=== PATIENT | male | born 1985 | race Caucasian/White ===

== ENCOUNTER 2021-01-18 23:42 | Emergency (ER) | payer MEDICARE, MEDICAID ==
[~2021-01-18] VITALS: Ht 177.8 cm; Wt 113.6 kg
[2021-01-18] MEDS ORDERED: LEVE10003 (23:52)
[2021-01-18] MEDS ORDERED: DIVA500T9 (23:52)
[2021-01-19 00:30] LABS: BASO # 0.1 10^3/uL (0.0-0.2); BASO % 0.8 % (0.0-1.0); EOS # 0.1 10^3/uL (0.0-0.5); EOS % 1.5 % (0.0-3.0); HEMATOCRIT 39.4 % (42.0-52.0); LYMPH # 2.3 10^3/uL (1.5-5.0); LYMPH % 31.7 % (24.0-44.0); MEAN CORPUSCULAR VOLUME 87.9 fl (80.0-96.0); MONO # 0.6 10^3/uL (0.0-0.8); MONO % 8.5 % (2.0-8.0); NEUTROPHILS % 55.4 % (36.0-66.0); PLATELET COUNT, AUTOMATED 303 10^3/uL (150-450); RED BLOOD COUNT 4.48 10^6/uL (4.30-6.10); WHITE BLOOD COUNT 7.2 10^3/uL (4.0-10.0)
[2021-01-19 01:02] LABS: ALBUMIN 2.9 GM/DL (3.2-5.2); ALT/SGPT 59 U/L (12-78); BILIRUBIN,TOTAL 0.3 MG/DL (0.2-1.0); BLOOD UREA NITROGEN 10 MG/DL (7-18); CALCIUM LEVEL 7.8 MG/DL (8.5-10.1); CARBON DIOXIDE LEVEL 24 MEQ/L (21-32); CHLORIDE LEVEL 110 MEQ/L (98-107); CPK CREATINE PHOSPHOKINASE 246 U/L (39-308); CREATININE FOR GFR 0.82 MG/DL (0.70-1.30); GLOMERULAR FILTRATION RATE > 60.0 (>60); GLUCOSE, FASTING 172 MG/DL (70-100); POTASSIUM SERUM 4.4 MEQ/L (3.5-5.1); SODIUM LEVEL 140 MEQ/L (136-145); TOTAL PROTEIN 6.1 GM/DL (6.4-8.2); VALPROIC ACID (DEPAKOTE) 34.4 UG/ML (50.0-100.0)
[2021-01-19] MEDS ORDERED: VALPROATE SOD INJ 500 MG in D5W 50 ML IV ONE (01:35)
[2021-01-19] MEDS ORDERED: DEPA500T2 PO (02:43)
[2021-01-19] MEDS ORDERED: DIVA500T9 PO (02:45)
[2021-01-19 03:01] VITALS: BP 148/75
== END 2021-01-19 03:27 | disposition home or self-care (01) ==
LOC: M ED 23:42
DX: R56.9 Unspecified convulsions (principal)

== ENCOUNTER 2021-03-05 12:14 | Emergency (ER) | payer MEDICARE, MEDICAID ==
[~2021-03-05] VITALS: Ht 180.3 cm; Wt 114.7 kg
[~2021-03-05 12:14] MED LIST: DEPA500T2 PO; DIVA500T9; DIVA500T9 PO; LEVE10003
--- OUTSIDE RECORDS SUMMARY | 2021-03-05 12:20 | CCD ---
Author Author [facility] Organization [facility] Address Unknown Phone Unavailable Care Team Providers Care Health And Safety Inspector Name Role Phone Janet, F Sundar PA Unavailable Unavailable [place], F Sundar PA Unavailable Unavailable [place], F Sundar PA Unavailable Unavailable [place], F Sundar PA Unavailable Unavailable Janet, F Sundar PA Unavailable Unavailable Janet, F Sundar PA Unavailable Unavailable Janet, F Sundar PA Unavailable Unavailable Janet, F Sundar PA Unavailable Unavailable [place], F Sundar PA Unavailable Unavailable Janet, F Sundar PA Unavailable Unavailable Hadian, Leoncio Unavailable Unavailable Hadian, Leoncio Unavailable Unavailable Hadian, Leoncio Unavailable Unavailable Hadian, Leoncio Unavailable Unavailable Hadian, Leoncio Unavailable Unavailable Hadian, Leoncio Unavailable Unavailable Hadian, Leoncio Unavailable Unavailable Hadian, Leoncio Unavailable Unavailable Hadian, Leoncio Unavailable Unavailable Hadian, Leoncio Unavailable Unavailable Hadian, Leoncio Unavailable Unavailable Hadian, Leoncio Unavailable Unavailable Hadian, Leoncio Unavailable Unavailable Hadian, Leoncio Unavailable Unavailable Hadian, Leoncio Unavailable Unavailable Hadian, Leoncio Unavailable Unavailable Hadian, Leoncio Unavailable Unavailable Hadian, Leoncio Unavailable Unavailable Hadian, Leoncio Unavailable Unavailable Hadian, Leoncio Unavailable Unavailable Hadian, Leoncio Unavailable Unavailable Hadian, Leoncio Unavailable Unavailable Hadian, Leoncio Unavailable Unavailable Hadian, Leoncio Unavailable Unavailable Hadian, Leoncio Unavailable Unavailable Hadian, Leoncio Unavailable Unavailable Hadian, Leoncio Unavailable Unavailable Hadian, Leoncio Unavailable Unavailable Hadian, Leoncio Unavailable Unavailable Hadian, Leoncio Unavailable Unavailable Hadian, Leoncio Unavailable Unavailable Hadian, Leoncio Unavailable Unavailable Hadian, Leoncio Unavailable Unavailable Hadian, Leoncio Unavailable Unavailable Hadian, Leoncio Unavailable Unavailable Hadian, Leoncio Unavailable Unavailable Hadian, Leoncio Unavailable Unavailable Hadian, Leoncio Unavailable Unavailable Hadian, Leoncio Unavailable Unavailable Hadian, Leoncio Unavailable Unavailable Hadian, Leoncio Unavailable Unavailable Hadian, Leoncio Unavailable Unavailable Cougler, S Issac HABILITATIVE INTERVENTIONIST Unavailable Unavailable Cougler, S Issac HABILITATIVE INTERVENTIONIST Unavailable Unavailable Cougler, S Issac HABILITATIVE INTERVENTIONIST Unavailable Unavailable Cougler, S Issac HABILITATIVE INTERVENTIONIST Unavailable Unavailable Cougler, S Issac HABILITATIVE INTERVENTIONIST Unavailable Unavailable Cougler, S Issac HABILITATIVE INTERVENTIONIST Unavailable Unavailable Cougler, S Issac HABILITATIVE INTERVENTIONIST Unavailable Unavailable Cougler, S Issac HABILITATIVE INTERVENTIONIST Unavailable Unavailable Cougler, S Issac HABILITATIVE INTERVENTIONIST Unavailable Unavailable Cougler, S Issac HABILITATIVE INTERVENTIONIST Unavailable Unavailable Cougler, S Issac HABILITATIVE INTERVENTIONIST Unavailable Unavailable Cougler, S Issac HABILITATIVE INTERVENTIONIST Unavailable Unavailable Cougler, S Issac HABILITATIVE INTERVENTIONIST Unavailable Unavailable Cougler, S Issac HABILITATIVE INTERVENTIONIST Unavailable Unavailable Cougler, S Issac HABILITATIVE INTERVENTIONIST Unavailable Unavailable Cougler, S Issac HABILITATIVE INTERVENTIONIST Unavailable Unavailable Cougler, S Issac HABILITATIVE INTERVENTIONIST Unavailable Unavailable Cougler, S Issac HABILITATIVE INTERVENTIONIST Unavailable Unavailable Cougler, S Issac HABILITATIVE INTERVENTIONIST Unavailable Unavailable Cougler, S Issac HABILITATIVE INTERVENTIONIST Unavailable Unavailable Cougler, S Issac HABILITATIVE INTERVENTIONIST Unavailable Unavailable Cougler, S Issac HABILITATIVE INTERVENTIONIST Unavailable Unavailable Cougler, S Issac HABILITATIVE INTERVENTIONIST Unavailable Unavailable Cougler, S Issac HABILITATIVE INTERVENTIONIST Unavailable Unavailable Cougler, S Issac HABILITATIVE INTERVENTIONIST Unavailable Unavailable Cougler, S Issac HABILITATIVE INTERVENTIONIST Unavailable Unavailable Cougler, S Issac HABILITATIVE INTERVENTIONIST Unavailable Unavailable Cougler, S Issac HABILITATIVE INTERVENTIONIST Unavailable Unavailable Cougler, S Issac HABILITATIVE INTERVENTIONIST Unavailable Unavailable Cougler, S Issac HABILITATIVE INTERVENTIONIST Unavailable Unavailable Cougler, S Issac HABILITATIVE INTERVENTIONIST Unavailable Unavailable Cougler, S Issac HABILITATIVE INTERVENTIONIST Unavailable Unavailable Cougler, S Issac HABILITATIVE INTERVENTIONIST Unavailable Unavailable Cougler, S Issac HABILITATIVE INTERVENTIONIST Unavailable Unavailable Cougler, S Issac HABILITATIVE INTERVENTIONIST Unavailable Unavailable Cougler, S Issac HABILITATIVE INTERVENTIONIST Unavailable Unavailable Cougler, S Issac HABILITATIVE INTERVENTIONIST Unavailable Unavailable Cougler, S Issac HABILITATIVE INTERVENTIONIST Unavailable Unavailable Cougler, S Issac HABILITATIVE INTERVENTIONIST Unavailable Unavailable Cougler, S Isasc HABILITATIVE INTERVENTIONIST Unavailable Unavailable Cougler, S Issac HABILITATIVE INTERVENTIONIST Unavailable Unavailable Cougler, S Issac HABILITATIVE INTERVENTIONIST Unavailable Unavailable Cougler, S Issac HABILITATIVE INTERVENTIONIST Unavailable Unavailable Cougler, S Issac HABILITATIVE INTERVENTIONIST Unavailable Unavailable UNKNOWN Unavailable Unavailable Re-disclosure Warning The records that you are about to access may contain information from federally-assisted alcohol or drug abuse programs. If such information is present, then the following federally mandated warning applies: This information has been disclosed to you from records protected by federal confidentiality rules (42 CFR part 2). The federal rules prohibit you from making any further disclosure of this information unless further disclosure is expressly permitted by the written consent of the person to whom it pertains or as otherwise permitted by 42 CFR part 2. A general authorization for the release of medical or other information is NOT sufficient for this purpose. The Federal rules restrict any use of the information to criminally investigate or prosecute any alcohol or drug abuse patient.The records that you are about to access may contain highly sensitive health information, the redisclosure of which is protected by Article 27-F of the [facility] Public Health law. If you continue you may have access to information: Regarding HIV / AIDS; Provided by facilities licensed or operated by the [facility] Office of Mental Health; or Provided by the [facility] Office for People With Developmental Disabilities. If such information is present, then the following [facility] mandated warning applies: This information has been disclosed to you from confidential records which are protected by state law. State law prohibits you from making any further disclosure of this information without the specific written consent of the person to whom it pertains, or as otherwise permitted by law. Any unauthorized further disclosure in violation of state law may result in a fine or prison sentence or both. A general authorization for the release of medical or other information is NOT sufficient authorization for further disc losure. Allergies and Adverse Reactions Type Description Substance Reaction Status Data Source(s ) Drug allergy Drug allergy No Known Allergies [facility] Encounters Encounter Providers Location Date Indications Data Source(s ) Outpatient Attender: UNKNOWN [facility]EJN 09/05/2020 02:59:00 PM E [facility] Outpatient Attender: Issac Lara NP ED-LAB 09/05 02:16:00 PM EDT - 09/05/2020 02:17:00 PM EDT E559 [id number] [facility] E559 [id number] Patient discharged. Outpatient Attender: Issac Lara NP ED-SLEEPLAB 05/24 07:47:00 PM EST - 05/24/2020 07:48:00 PM EST G47.33 [facility] G47.33 Patient discharged. Outpatient [facility]LABEJ[facility] 04/28/2020 02:42:00 PM EST [facility] Outpatient Attender: Leoncio Valentine ED-LABPNP 0 10:08:00 AM EST - 04/28/2020 10:09:00 AM EST RETURN TO [facility] RETURN TO [facility] Patient discharged. Outpatient Attender: Issac Lara NP ED-SLEEPLAB 04/18 07:03:00 PM EST - 04/18/2020 07:04:00 PM EST G47.30 [facility] G47.30 Patient discharged. Outpatient [facility]LABEJ[facility] 03/07/2020 09:52:00 AM EDT [facility] Emergency Attender: Sundar DE LEÓN ED-ED 10:16:00 PM EDT - 03/07/2020 12:01:00 AM EDT [facility] Seizure Patient discharged. Immunizations Vaccine Date Status Description Data Source(s) COVID-19 VACCINE [employer] 11/12/2020 12:00:00 AM EDT completed [facility] Vaccine Series Complete: YESThis Data wa s Submitted to [facility] Via [employer]. COVID-19 VACCINE [employer] 10/22/2020 12:00:00 AM EDT completed [facility] Vaccine Series Complete: NOThis Data was Submitted to [facility] Via [employer]. Medications Medication Brand Name Start Date Product Form Dose Route Admi nistrative Instructions Pharmacy Instructions Status Indications Reaction Description Data Source(s) 24 HR Divalproex Sodium 500 MG Extended Release Oral Tablet DIVALPROEX SODIUM 09/06/2020 12:00:00 AM EDT tablet extended release 24 hr 180 TAKE TWO TABLETS BY MOUTH TWICE A DAY TAKE TWO TABLETS BY MOUTH TWICE A DAY SOLD: 09/06/2020 [facility] 1,000 mg 09/06/2020 12:00:00 AM EDT tablet 270 TAKE ONE AND ONE-HALF TABLETS BY MOUTH EVERY 12 HOURS TAKE ONE AND ONE-HALF TABLETS BY MOUTH EVERY 12 HOURS SOLD: 09/06/2020 [facility] 1,000 mg 08/08/2020 12:00:00 AM EDT tablet 90 TAKE ONE AND A HALF TABLETS BY MOUTH EVERY 12 HOURS TAKE ONE AND A HALF TABLETS BY MOUTH EVERY 12 HOURS SO LD: 08/09/2020 [facility] 24 HR Divalproex Sodium 500 MG Extended Release Oral Tablet DIVALPROEX SODIUM 04/06/2020 12:00:00 AM EST tablet extended release 24 hr 180 TAKE TWO TABLETS BY MOUTH TWICE A DAY TAKE TWO TABLETS BY MOUTH TWICE A DAY SOLD: 04/06/2020 [facility] 24 HR Divalproex Sodium 500 MG Extended Release Oral Tablet DIVALPROEX SODIUM 04/06/2020 12:00:00 AM EST tablet extended release 24 hr 168 TAKE TWO TABLETS BY MOUTH TWICE A DAY TAKE TWO TABLETS BY MOUTH TWICE A DAY SOLD: 07/12/2020 [facility] 1,000 mg 04/05/2020 12:00:00 AM EST tablet 180 TAKE 1 & 1/2 TABLETS BY MOUTH EVERY 12 HOURS TAKE 1 & 1/2 TABLETS BY MOUTH EVERY 12 HOURS SOLD: 04/06/2020 [facility] 1,000 mg 04/05/2020 12:00:00 AM EST tablet 180 TAKE 1 & 1/2 TABLETS BY MOUTH EVERY 12 HOURS TAKE 1 & 1/2 TABLETS BY MOUTH EVERY 12 HOURS SOLD: 06/05/2020 [facility] 500 mg 02/07/2020 12:00:00 AM EDT tablet extended release 24 hr 120 TAKE TWO TABLETS BY MOUTH TWICE A DAY TAKE TWO TABLETS BY MOUTH TWICE A DAY SOLD: 02/08/2020 [facility] 1,000 mg 10/09/2019 12:00:00 AM EDT tablet 90 TAKE ONE AND ONE-HALF TABLET BY MOUTH EVERY 12 HOURS TAKE ONE AND ONE-HALF TABLET BY MOUTH EVERY 12 HOURS SOLD: 01/13/2020 [facility] 1,000 mg 10/09/2019 12:00:00 AM EDT tablet 90 TAKE ONE AND ONE-HALF TABLET BY MOUTH EVERY 12 HOURS TAKE ONE AND ONE-HALF TABLET BY MOUTH EVERY 12 HOURS SOLD: 02/13/2020 [facility] 1,000 mg 10/09/2019 12:00:00 AM EDT tablet 90 TAKE ONE AND ONE-HALF TABLET BY MOUTH EVERY 12 HOURS TAKE ONE AND ONE-HALF TABLET BY MOUTH EVERY 12 HOURS SOLD: 03/12/2020 [facility] Insurance Providers Payer name Policy type / Coverage type Policy ID Covered democrat ID Covered democrat's relationship to lawrence Policy [place] Plan Information MEDICARE [id number] S [id number] A [facility] MEDICAID [id number] SP [id number] MEDICARE [id number] SP [id number] [facility] MEDICAID [id number] SP [id number] MEDICARE [id number] SP [id number] MEDICAID [id number] S [id number] MEDICARE [id number] S [id number] MEDICARE [id number] S [id number] ANSI-Medicare Part B [id number] ANSI-Medicaid [id number] [facility] [id number] ANSI-Medicare Part B [id number] [facility] [id number] [facility] [id number] [facility] [id number] ANSI-Medicare Part B [id number] ANSI-Medicare Part B [id number] ANSI-Medicaid [id number] ANSI-Medicare Part B [id number] ANSI-Medicaid [id number] MEDICAID [id number] S [id number] MEDICAID [id number] S [id number] MEDICAID -O/P [id number] MEDICARE -O/P [id number] 18 [id number] MEDICAID -PHYSICIAN [id number] MEDICARE -PHYSICIAN [id number] MEDICARE [id number] Problems, Conditions, and Diagnoses Code Display Name Description Problem Type Effective Dates Data Source(s) E66.9 Obesity, unspecified OBESITY, UNSPECIFIED Diagnosis 09/05/2020 02:16:00 PM [facility] E55.9 Vitamin D deficiency, unspecified VITAMIN D DEFI CIENCY, UNSPECIFIED Diagnosis 09/05/2020 02:16:00 PM [facility] G40.909 Epilepsy, unspecified, not intractable, without status epilepticus EPILEPSY, UNSP, NOT INTRACTABLE, WITHOUT STATUS EPILEPTICUS Diagnosis 05/24/2020 07:47:00 PM [facility] Z68.37 Body mass index (BMI) 37.0-37.9, adult [place] INDEX [BMI] 37.0-37.9, ADULT Diagnosis 05/24/2020 07:47:00 PM [facility]ital E66.01 Morbid (severe) obesity due to excess ca lories MORBID (SEVERE) OBESITY DUE TO EXCESS CALORIES Diagnosis 05/24/2020 07:47:00 PM [facility] G47.33 Obstructive sleep apnea (adult) (pediatr ic) OBSTRUCTIVE SLEEP APNEA (ADULT) (PEDIATRIC) Diagnosis 05/24/2020 07:47:[facility] Procedure Description Date Indications Data Source(s) POLYSM SLEEP STAGING 4/> ADDL TONIA W/CPAP TX POLYSOM 6/>YRS CPAP 4/> PARM 05/25/2020 12:00:00 AM [facility] Results ID Date Data Source [id number] 09/07/2020 05:12:00 PM EDT [facility] Name Value Range Interpretation Code Description Data Deanne rce(s) Supporting Document(s) Levetiracetam result Normal (applies to non-num corona results) [facility] REFERENCE VALUE------ 10.0 - 40.0 ADDITIONAL INFORMATION This test was developed and its performance characteristics determined by [facility] in a manner consistent with CLIA requirements. This test has not been cleared or approved by the U.S. Food and Drug Administration. Test Performed by: [facility] - [address] [address] Retirement Benefits Specialist: Bryan Morgan M.D. Ph.D.; CLIA# [id number] ID Date Data Source [id number] 09/07/2020 04:12:00 PM EDT [facility] Name Value Range Interpretation Code Description Data Deanne rce(s) Supporting Document(s) Levetiracetam result Normal (applies to non-num corona results) [facility] REFERENCE VALUE------ 10.0 - 40.0 ADDITIONAL INFORMATION This test was developed and its performance characteristics determined by [facility] in a manner consistent with CLIA requirements. This test has not been cleared or approved by the U.S. Food and Drug Administration. Test Performed by: [facility] [place] [address] Retirement Benefits Specialist: Bryan Morgan M.D. Ph.D.; CLIA# [id number] ID Date Data Source [id number] 09/05/2020 03:50:00 PM EDT [facility] Name Value Range Interpretation Code Description Data Deanne rce(s) Supporting Document(s) Color,Urine Colorl-Dk Y Normal (applies to non-numeric res ults) [facility] Clarity,Urine Clear Normal (applies to non-numeric re sults) [facility] Specific [place],Urine 1.005-1.030 Normal (applies to non- numeric results) [facility] pH,Urine 5.0-8.0 Normal (applies to non-numeric resul ts) [facility] Protein,Urine Negative Normal (applies to non-numeric re sults) [facility] Glucose,Urine Negative Normal (applies to non-numeric re sults) [facility] Ketones,Urine Negative Normal (applies to non-numeric re sults) [facility] Blood,Urine Negative Normal (applies to non-numeric resu lts) [facility] Bilirubin,Urine Negative Normal (applies to non-numeric results) [facility] Urobilinogen,Urine 0.2-1.0 Normal (applies to non-numer ic results) [facility] Leukocyte Esterase,Urine Negative Normal (applies to non -numeric results) [facility] Nitrite,Urine Negative Normal (applies to non-numeric re sults) [facility] RBC,Urine None Seen Normal (applies to non-numeric resul ts) [facility] WBC,Urine None Seen Normal (applies to non-numeric resul ts) [facility] Casts,Urine None Seen Normal (applies to non-numeric resu lts) [facility] Epithelial Cells,Urine None - Few Normal (applies to non-n umeric results) [facility] Bacteria,Urine None Seen Normal (applies to non-numeric r esults) [facility] ID Date Data Source [id number] 09/05/2020 03:37:00 PM EDT [facility] Name Value Range Interpretation Code Description Data Deanne rce(s) Supporting Document(s) Vitamin D, Total 30.0-100.0 Normal (applies to non-numeric results) [facility] ID Date Data Source [id number] 09/05/2020 03:33:00 PM EDT [facility] Date/time of last Valproic dose? 9046-5607 Date/time of last Valproic dose? 1069-6478 Date/time of last Valproic dose? 9668-5322 Date/time of last Valproic dose? 9307-7969 Date/time of last Valproic dose? 8604-9842 Date/time of last Valproic dose? 1775-8866 Name Value Range Interpretation Code Description Data Deanne rce(s) Supporting Document(s) Sodium 140 mmol/L 136-145 Normal (applies to non-numeric resul ts) [facility] Potassium 3.5-5.1 Normal (applies to non-numeric resul ts) [facility] Chloride 102 mmol/L 98-107 Normal (applies to non-numeric resul ts) [facility] Carbon Dioxide CO2 21-32 Normal (applies to non-numer ic results) [facility] Anion Gap 5.0-16.0 Normal (applies to non-numeric resul ts) [facility] BUN 12 mg/dL 7-18 Normal (applies to non-numeric results) [facility] Creatinine,Serum 0.8-1.5 Normal (applies to non-numeric results) [facility] GFR >60 Normal (applies to non-numeric results) [facility] Glucose Level 95 mg/dL 60-99 Normal (applies to non-numeric re sults) [facility] Reference range is only applicable when patient is fasting Note the following drug interference: Sulfasalazine Sulfapyridine Can see falsely depressed Can see falsely elevated result with up to 17% results with up to 11% decrease in measurement increase in measurement Recommend patients be collected for this test prior to administration of either drug. Calcium 8.5-10.1 Normal (applies to non-numeric resul ts) [facility] Bilirubin,Total 0.1-1.9 Normal (applies to non-numeric results) [facility] SGOT(AST) 22 U/L 15-37 Normal (applies to non-numeric resul ts) [facility] Note the following drug interference: Sulfasalazine Sulfapyridine Can see falsely depressed Can see falsely elevated result with up to 10% results with up to 10% decrease in measurement increase in measurement Recommend patients be collected for this test prior to administration of either drug. SGPT(ALT) 51 U/L 12-78 Normal (applies to non-numeric resul ts) [facility] Note the following drug interference: Sulfasalazine Sulfapyridine Can see falsely depressed Can see falsely elevated result with up to 29% results with up to 10% decrease in measurement increase in measurement Recommend patients be collected for this test prior to administration of either drug. Alkaline Phosphatase 105 U/L 38-126 Normal (applies to non-num corona results) [facility] can increase Alkaline Phosp le vels up to 2 times the normal adult value. Normal values for children and adolescents are 2 to 3 times the normal adult value. Total Protein 6.0-8.2 Normal (applies to non-numeric re sults) [facility] Albumin Level 3.4-5.0 Normal (applies to non-numeric re sults) [facility] ID Date Data Source [id number] 09/05/2020 03:33:00 PM EDT [facility] Date/time of last Valproic dose? 2228-3438 Date/time of last Valproic dose? 3446-2229 Date/time of last Valproic dose? 2666-9372 Date/time of last Valproic dose? 0549-6071 Date/time of last Valproic dose? 8421-0495 Date/time of last Valproic dose? 6625-8284 Name Value Range Interpretation Code Description Data Deanne rce(s) Supporting Document(s) Phosphorus 2.5-4.9 Normal (applies to non-numeric resul ts) [facility] ID Date Data Source [id number] 09/05/2020 03:33:00 PM EDT [facility] Date/time of last Valproic dose? 0729-2965 Date/time of last Valproic dose? 2788-7075 Date/time of last Valproic dose? 0786-1331 Date/time of last Valproic dose? 7196-2873 Date/time of last Valproic dose? 1244-1825 Date/time of last Valproic dose? 6946-2751 Name Value Range Interpretation Code Description Data Deanne rce(s) Supporting Document(s) Magnesium 1.8-2.4 Normal (applies to non-numeric resul ts) [facility] ID Date Data Source [id number] 09/05/2020 03:33:00 PM EDT [facility] Date/time of last Valproic dose? 7352-8072 Date/time of last Valproic dose? 9029-4550 Date/time of last Valproic dose? 9215-7682 Date/time of last Valproic dose? 7791-9366 Date/time of last Valproic dose? 0317-3798 Date/time of last Valproic dose? 8482-5064 Name Value Range Interpretation Code Description Data Deanne rce(s) Supporting Document(s) Triglycerides 267 mg/dL <150 Above high normal [facility] Cholesterol 257 mg/dL 100-200 Above high normal [facility] LDL Cholesterol Calculated 165 0-130 Above high normal [facility] HDL Cholesterol 39 mg/dL 40-60 Below low normal [facility] Cholesterol/HDL Ratio 3.6-6.7 Normal (applies to non-nu meric results) [facility] ID Date Data Source [id number] 09/05/2020 03:33:00 PM EDT [facility] Date/time of last Valproic dose? 5488-7725 Date/time of last Valproic dose? 8477-6163 Date/time of last Valproic dose? 2769-8199 Date/time of last Valproic dose? 6150-7532 Date/time of last Valproic dose? 1932-7227 Date/time of last Valproic dose? 7165-6937 Name Value Range Interpretation Code Description Data Deanne rce(s) Supporting Document(s) Depakene (Valproic Acid) 50.0-100.0 Normal (applies to non -numeric results) [facility] ID Date Data Source [id number] 09/05/2020 03:33:00 PM EDT [facility] Date/time of last Valproic dose? 9193-9336 Date/time of last Valproic dose? 3142-9497 Date/time of last Valproic dose? 3259-7524 Date/time of last Valproic dose? 0023-7145 Date/time of last Valproic dose? 5203-9069 Date/time of last Valproic dose? 1446-1328 Name Value Range Interpretation Code Description Data Deanne rce(s) Supporting Document(s) Thyroid Stimulate Hormone TSH 0.358-3.74 No rmal (applies to non-numeric results) [facility] ID Date Data Source [id number] 09/05/2020 03:06:00 PM EDT [facility] Name Value Range Interpretation Code Description Data Deanne rce(s) Supporting Document(s) White Blood Count 3.5-10.5 Normal (applies to non-numeri c results) [facility] Red Blood Count 4.30-5.70 Normal (applies to non-numeric results) [facility] Hemoglobin 13.5-17.5 Normal (applies to non-numeric resul ts) [facility] Hematocrit 38.8-50.0 Normal (applies to non-numeric resul ts) [facility] Mean Corpuscular Volume 81.2-95.1 Normal (applies to non- numeric results) [facility] Mean Corpuscular Hgb 25.6-32.2 Normal (applies to non-num corona results) [facility] Mean Corpuscular Hgb Conc 32.0-36.0 Normal (applies to no n-numeric results) [facility] Red Cell Distribution Width 11.8-15.6 Normal (appli es to non-numeric results) [facility] Platelet Count 325 x10 3/uL 150-450 Normal (applies to non-numeric results) [facility] Mean Platelet Volume 9.4-12.4 Normal (applies to non-num corona results) [facility] Neutrophils% (Auto) 31.0-71.0 Normal (applies to non-nume milo results) [facility] Lymphocytes% (Auto) 20.0-55.0 Normal (applies to non-nume milo results) [facility] Monocytes% (Auto) 4.0-12.0 Normal (applies to non-numeri c results) [facility] Eosinophils% (Auto) 1.0-8.0 Normal (applies to non-nume milo results) [facility] Basophils% (Auto) 0.0-2.0 Normal (applies to non-numeri c results) [facility] Immature Granulocytes% (Auto) 0.0-2.0 Normal (huong lies to non-numeric results) [facility] Neutrophils# (Auto) 1.50-6.20 Normal (applies to non-nume milo results) [facility] Lymphocytes# (Auto) 1.20-4.00 Normal (applies to non-nume milo results) [facility] Monocytes# (Auto) 0.00-0.90 Normal (applies to non-numeri c results) [facility] Eosinophils# (Auto) 0.00-0.50 Normal (applies to non-nume milo results) [facility] Basophils# (Auto) 0.00-0.20 Normal (applies to non-numeri c results) [facility] Immature Granulocytes# (Auto) 0.00-7.00 No rmal (applies to non-numeric results) [facility] ID Date Data Source [id number] 04/30/2020 03:15:00 PM EST [facility] Name Value Range Interpretation Code Description Data Deanne rce(s) Supporting Document(s) Respiratory specimen severe acute respir atory syndrome coronavirus 2 (SARS-CoV-2) RNA [facility] This lab was ordered by [facility] cami and reported by [facility]. ID Date Data Source [id number] 05/01/2020 01:50:00 PM [facility] COVID-19 Specimen Source NASOPHARYNGEAL Is Patient admitted or to be admitted? NFirst test? NOEmployed in healthcare? NOSymptomatic per CDC? NOHospitalized? NOICU? NOResident in congregated care? ex jail, ARC NO? NO Name Value Range Interpretation Code Description Data Deanne rce(s) Supporting Document(s) SARS-CoV-2 RNA Negative Normal (applies to non-numeric r esults) [facility] This test has not been FDA cleared or ap proved. This test has been authorized by FDA under an EUA for use by authorized laboratories. This test has been authorized only for detection of nucleic acid from 2019-nCoV, not for any other viruses or pathogens. This test is only authorized for the duration of the declaration that circumstances exist justifying the authorization of emergency use of in vitro diagnostic tests for detection and/or diagnosis of 2019-nCoV under section 564(b)(1) of Act, 21 U.S.C ? 360bbb-3(b) (1), unless the authorization is terminated or revoked sooner. Negative results do not preclude 2019-nCoV infection and should not be used as the sole basis for treatment or other patient management decisions. Negative results must be combined with clinical observations, patient history, and epidemiological information. Performed on the [employer] Fusion instrument THIS IS A STATE REPORTABLE COMMUNICABLE DISEASE. Performing Lab Normal (applies to non-numeric r esults) [facility] COVID-19 Specimen Source: HABILITATIVE INTERVENTIONIST First test ?: N Employed in healthcare?: N Symptomatic per CDC?: N Hospitalized?: N ICU?: N Resident in congregated care? ex jail, ARC: N ?: N Please indicate the Triage TierN Test performed or referred by The [address] [address] ID Date Data Source [id number] 04/30/2020 03:24:00 PM EST [facility] COVID-19 Specimen Source NASOPHARYNGEAL Is Patient admitted or to be admitted? NFirst test? NOEmployed in healthcare? NOSymptomatic per [facility]? NOHospitalized? NOICU? NOResident in congregated care? ex jail, [place]C NO? NO Name Value Range Interpretation Code Description Data Deanne rce(s) Supporting Document(s) SARS-CoV-2 RNA Negative Normal (applies to non-numeric r esults) [facility] This test has not been FDA cleared or ap proved. This test has been authorized by FDA under an EUA for use by authorized laboratories. This test has been authorized only for detection of nucleic acid from 2019-nCoV, not for any other viruses or pathogens. This test is only authorized for the duration of the declaration that circumstances exist justifying the authorization of emergency use of in vitro diagnostic tests for detection and/or diagnosis of 2019-nCoV under section 564(b)(1) of Act, 21 U.S.C ? 360bbb-3(b) (1), unless the authorization is terminated or revoked sooner. Negative results do not preclude 2019-nCoV infection and should not be used as the sole basis for treatment or other patient management decisions. Negative results must be combined with clinical observations, patient history, and epidemiological information. Performed on the [employer] Fusion instrument THIS IS A STATE REPORTABLE COMMUNICABLE DISEASE. Performing Lab Normal (applies to non-numeric r esults) [facility] COVID-19 Specimen Source: HABILITATIVE INTERVENTIONIST First test ?: N Employed in healthcare?: N Symptomatic per CDC?: N Hospitalized?: N ICU?: N Resident in congregated care? ex jail, [place]C: N ?: N Please indicate the Triage TierN Test performed or referred by The [address] [address] ID Date Data Source [id number] 03/11/2020 01:47:00 AM EDT [facility] Name Value Range Interpretation Code Description Data Deanne rce(s) Supporting Document(s) Levetiracetam result Normal (applies to non-num corona results) [facility] REFERENCE VALUE------ 12.0 - 46.0 ADDITIONAL INFORMATION This test was developed and its performance characteristics determined by [facility] in a manner consistent with CLIA requirements. This test has not been cleared or approved by the U.S. Food and Drug Administration. Test Performed by: [facility] [place] [address] Retirement Benefits Specialist: Bryan Morgan M.D. Ph.D.; CLIA# [id number] ID Date Data Source [id number] 03/10/2020 09:51:00 PM EDT [facility] Name Value Range Interpretation Code Description Data Deanne rce(s) Supporting Document(s) Levetiracetam result Normal (applies to non-num corona results) [facility] REFERENCE VALUE------ 12.0 - 46.0 ADDITIONAL INFORMATION This test was developed and its performance characteristics determined by [facility] in a manner consistent with CLIA requirements. This test has not been cleared or approved by the U.S. Food and Drug Administration. Test Performed by: [facility] [address] [place] [address] Retirement Benefits Specialist: Bryan Morgan M.D. Ph.D.; CLIA# [id number] ID Date Data Source [id number] 03/06/2020 11:40:00 PM EDT [facility] Name Value Range Interpretation Code Description Data Deanne rce(s) Supporting Document(s) White Blood Count 3.5-10.5 Normal (applies to non-numeri c results) [facility] Red Blood Count 4.30-5.70 Normal (applies to non-numeric results) [facility] Hemoglobin 13.5-17.5 Normal (applies to non-numeric resul ts) [facility] Hematocrit 38.8-50.0 Normal (applies to non-numeric resul ts) [facility] Mean Corpuscular Volume 81.2-95.1 Normal (applies to non- numeric results) [facility] Mean Corpuscular Hgb 25.6-32.2 Normal (applies to non-num corona results) [facility] Mean Corpuscular Hgb Conc 32.0-36.0 Normal (applies to no n-numeric results) [facility] Red Cell Distribution Width 11.8-15.6 Normal (appli es to non-numeric results) [facility] Platelet Count 311 x10 3/uL 150-450 Normal (applies to non-numeric results) [facility] Mean Platelet Volume 9.4-12.4 Normal (applies to non-num corona results) [facility] Total Cells Counted (Manual) 100 Normal (applies to non-numeric results) [facility] Neutrophils% (Manual) 52 % 31-71 Normal (applies to non-nu meric results) [facility] Lymphocytes% (Manual) 37 % 20-55 Normal (applies to non-nu meric results) [facility] Monocytes% (Manual) 10 % 4-12 Normal (applies to non-nume milo results) [facility] Basophils% (Manual) 1 % 0-2 Normal (applies to non-nume milo results) [facility] Platelet Estimate (Manual) Agreement Normal (applie s to non-numeric results) [facility] Slide Reviewed By Normal (applies to non-numeri c results) [facility] Slide has been reviewed and findings con firmed by a technologist/industrial safety and health technician. ID Date Data Source [id number] 03/06/2020 11:32:00 PM EDT [facility] Name Value Range Interpretation Code Description Data Deanne rce(s) Supporting Document(s) Depakene (Valproic Acid) 50.0-100.0 PL [facility] KARIN L. read back critical information [id number].[email or web address] ID Date Data Source [id number] 03/06/2020 11:32:00 PM EDT [facility] Name Value Range Interpretation Code Description Data Deanne rce(s) Supporting Document(s) Sodium 140 mmol/L 136-145 Normal (applies to non-numeric resul ts) [facility] Potassium 3.5-5.1 Normal (applies to non-numeric resul ts) [facility] Chloride 103 mmol/L 98-107 Normal (applies to non-numeric resul ts) [facility] Carbon Dioxide CO2 21-32 Normal (applies to non-numer ic results) [facility] Anion Gap 5.0-16.0 Normal (applies to non-numeric resul ts) [facility] BUN 12 mg/dL 7-18 Normal (applies to non-numeric results) [facility] Creatinine,Serum 0.8-1.5 Normal (applies to non-numeric results) [facility] GFR >60 Normal (applies to non-numeric results) [facility] Glucose Level 182 mg/dL 60-99 Above high normal [facility] Reference range is only applicable when patient is fasting Note the following drug interference: Sulfasalazine Sulfapyridine Can see falsely depressed Can see falsely elevated result with up to 17% results with up to 11% decrease in measurement increase in measurement Recommend patients be collected for this test prior to administration of either drug. Calcium 8.5-10.1 Normal (applies to non-numeric resul ts) [facility] Bilirubin,Total 0.1-1.9 Normal (applies to non-numeric results) [facility] SGOT(AST) 32 U/L 15-37 Normal (applies to non-numeric resul ts) [facility] Note the following drug interference: Sulfasalazine Sulfapyridine Can see falsely depressed Can see falsely elevated result with up to 10% results with up to 10% decrease in measurement increase in measurement Recommend patients be collected for this test prior to administration of either drug. SGPT(ALT) 71 U/L 12-78 Normal (applies to non-numeric resul ts) [facility] Note the following drug interference: Sulfasalazine Sulfapyridine Can see falsely depressed Can see falsely elevated result with up to 29% results with up to 10% decrease in measurement increase in measurement Recommend patients be collected for this test prior to administration of either drug. Alkaline Phosphatase 97 U/L 38-126 Normal (applies to non-num corona results) [facility] can increase Alkaline Phosp le vels up to 2 times the normal adult value. Normal values for children and adolescents are 2 to 3 times the normal adult value. Total Protein 6.0-8.2 Normal (applies to non-numeric re sults) [facility] Albumin Level 3.4-5.0 Normal (applies to non-numeric re sults) [facility] Procedure Social History No Information Vital Signs ID Date Data Source [id number] 03/11/2020 01:47:00 AM EDT [facility] Name Value Range Interpretation Code Description Data Source(s) Weight Measurement Method 8 8 [facility] Weight 3200 3200 [facility] pital Temperature Source 7 7 [facility] Temperature 99 99 [facility] Respiratory Effort 1 1 [facility] Respiratory Rate 14 14 [facility] Pulse Assessment Method 4 4 [facility] Pulse Rate 117 117 [facility] pital Blood Pressure 133/88 133/88 [facility] Weight Measurement Method 8 8 [facility] Weight 3200 3200 [facility] pital Temperature Source 7 7 [facility] Temperature [address] [facility] [facility] Respiratory Effort 1 1 [facility] Respiratory Rate 20 20 [facility] Pulse Assessment Method 4 4 [facility] Pulse Rate 125 125 [facility] pital Blood Pressure 137/93 137/93 [facility] Weight Measurement Method 8 8 [facility] Weight 3200 3200 [facility] pital Temperature Source 7 7 [facility] Temperature [address] [facility] Respiratory Effort 1 1 [facility] Respiratory Rate 20 20 [facility] Pulse Assessment Method 4 4 [facility] Pulse Rate 120 120 [facility] pital Blood Pressure 126/93 126/93 [facility] Weight Measurement Method 8 8 [facility] Weight 3200 3200 [facility] pital Temperature Source 7 7 [facility] Temperature 99 99 [facility] Respiratory Effort 1 1 [facility] Respiratory Rate 20 20 [facility] Pulse Assessment Method 4 4 [facility] Pulse Rate 120 120 [facility] pital Blood Pressure 126/93 126/93 [facility]
[2021-03-05] MEDS ORDERED: DIVA500T94 PO (12:42)
[2021-03-05] MEDS ORDERED: LEVE10003 PO (17:11)
--- OUTSIDE RECORDS SUMMARY | 2021-03-05 17:22 | CCD ---
Author Author [facility] Organization [facility] Address Unknown Phone Unavailable Care Team Providers Care Framing And Hanging Name Role Phone Janet, F Sundar PA Unavailable Unavailable Janet, F Sundar PA Unavailable Unavailable Janet, F Sundar PA Unavailable Unavailable Janet, F Sundar PA Unavailable Unavailable [place], F Sundar PA Unavailable Unavailable [place], F Sundar PA Unavailable Unavailable Janet, F Sundar PA Unavailable Unavailable [place], F Sundar PA Unavailable Unavailable [place], F Sundar PA Unavailable Unavailable Janet, F Sundar PA Unavailable Unavailable Hadian, Leoncio Unavailable Unavailable Hadian, Leoncio Unavailable Unavailable Hadian, Leoncio Unavailable Unavailable Hadian, Leoncio Unavailable Unavailable Hadian, Leoncio Unavailable Unavailable Hadian, Leoncio Unavailable Unavailable Hadian, Leoncio Unavailable Unavailable Hadian, Leoncio Unavailable Unavailable Hadian, Leoncio Unavailable Unavailable Hadian, Leoncio Unavailable Unavailable Hadian, Leoncio Unavailable Unavailable Hadian, Loencio Unavailable Unavailable Hadian, Leoncio Unavailable Unavailable Hadian, [...] Hadian, Leoncio Unavailable Unavailable Cougler, S Issac RISK MANAGER Unavailable Unavailable Cougler, S Issac RISK MANAGER Unavailable Unavailable Cougler, S Issac RISK MANAGER Unavailable Unavailable Cougler, S Issac RISK MANAGER Unavailable Unavailable Cougler, S Issac RISK MANAGER Unavailable Unavailable Cougler, S Issac RISK MANAGER Unavailable Unavailable Cougler, S Issac RISK MANAGER Unavailable Unavailable Cougler, S Issac RISK MANAGER Unavailable Unavailable [place]oug[place], S Issac RISK MANAGER Unavailable Unavailable [place], S Issac RISK MANAGER Unavailable Unavailable Cougler, S Issac RISK MANAGER Unavailable Unavailable Cougler, S Issac RISK MANAGER Unavailable Unavailable Cougler, S Issac RISK MANAGER Unavailable Unavailable Cougler, S Issac RISK MANAGER Unavailable Unavailable Cougler, S Issac RISK MANAGER Unavailable Unavailable Cougler, S Issac RISK MANAGER Unavailable Unavailable Cougler, S Issac RISK MANAGER Unavailable Unavailable Cougler, S Issac RISK MANAGER Unavailable Unavailable Cougler, S Issac RISK MANAGER Unavailable Unavailable Cougler, S Issac RISK MANAGER Unavailable Unavailable Cougler, S Issac RISK MANAGER Unavailable Unavailable Cougler, S Issac RISK MANAGER Unavailable Unavailable Cougler, S Issac RISK MANAGER Unavailable Unavailable Cougler, S Issac RISK MANAGER Unavailable Unavailable Cougler, S Issac RISK MANAGER Unavailable Unavailable Cougler, S Issac RISK MANAGER Unavailable Unavailable Cougler, S Issac RISK MANAGER Unavailable Unavailable Cougler, S Issac RISK MANAGER Unavailable Unavailable Cougler, S Issac RISK MANAGER Unavailable Unavailable Cougler, S Issac RISK MANAGER Unavailable Unavailable Cougler, S Issac RISK MANAGER Unavailable Unavailable Cougler, S Issac RISK MANAGER Unavailable Unavailable Cougler, S Issac RISK MANAGER Unavailable Unavailable Cougler, S Issac RISK MANAGER Unavailable Unavailable Cougler, S Issac RISK MANAGER Unavailable Unavailable Cougler, S Issac RISK MANAGER Unavailable Unavailable Cougler, S Issac RISK MANAGER Unavailable Unavailable Cougler, S Issac RISK MANAGER Unavailable Unavailable Cougler, S Issac RISK MANAGER Unavailable Unavailable Cougler, S Issac RISK MANAGER Unavailable Unavailable Cougler, S Issac RISK MANAGER Unavailable Unavailable Cougler, S Issac RISK MANAGER Unavailable Unavailable Cougler, S Issac RISK MANAGER Unavailable Unavailable Cougler, S Issac RISK MANAGER Unavailable Unavailable UNKNOWN Unavailable Unavailable Re-disclosure Warning [...] is protected by Article 27-F of the [facility] Public Health law. If you continue you may have access to information: Regarding HIV / AIDS; Provided by facilities licensed or operated by the [facility] Office of Mental Health; or Provided by the [facility] Office for People With Developmental Disabilities. If such information is present, then the following [facility] mandated warning applies: This information has been [...] law may result in a fine or nursing home sentence or both. A general authorization for the release of medical or other information is NOT sufficient authorization for further disc losure. Allergies and Adverse Reactions Type Description Substance Reaction Status Data Source(s ) Drug allergy Drug allergy No Known Allergies [facility] Encounters Encounter Providers Location Date Indications Data Source(s ) Outpatient Attender: UNKNOWN CPSCAORT-LABEJN 09/05/2020 02:59:00 PM E [facility] Outpatient Attender: Issac Lara NP ED-LAB 09/05 02:16:00 PM EDT - 09/05/2020 02:17:00 PM EDT E559 [id number] [facility] E559 [id number] Patient discharged. Outpatient Attender: Issac Lara NP ED-SLEEPLAB 05/24 07:47:00 PM EST - 05/24/2020 07:48:00 PM EST G47.33 [facility] G47.33 Patient discharged. Outpatient CPSCAORT-LABEJN 04/28/2020 02:42:00 PM EST [facility] Outpatient Attender: Leoncio Beardenti ED-LABPNP 10:08:00 AM EST - 04/28/2020 10:09:00 AM EST RETURN TO [facility] RETURN TO [facility] Patient discharged. Outpatient Attender: Issac Lara NP ED-SLEEPLAB 04/18 07:03:00 PM EST - 04/18/2020 07:04:00 PM EST G47.30 [facility] G47.30 Patient discharged. Outpatient CPSCAORT-LABEJN 03/07/2020 09:52:00 AM EDT [facility] Emergency Attender: Sundar DE LEÓN ED-ED 10:16:00 PM EDT - 03/07/2020 12:01:00 AM EDT Seizure [facility] Seizure Patient discharged. Immunizations Vaccine Date Status Description Data Source(s) COVID-19 VACCINE [employer] 11/12/2020 12:00:00 AM EDT [facility]: YESThis Data wa s Submitted to [facility] Via [employer]. COVID-19 VACCINE [employer] 10/22/2020 12:00:00 AM EDT completed [facility] Vaccine Series Complete: NOThis Data was Submitted to [facility] Via [employer]. Medications Medication Brand Name Start Date Product [...] type / Coverage type Policy ID Covered alliance party ID Covered alliance party's relationship to lawrence Policy Lawrence Plan Information MEDICARE [id number] S [id number] A [facility] MEDICAID [id number] SP [id number] U MEDICARE [id number] SP [id number] J37 [facility] MEDICAID [id number] SP [id number] MEDICARE [id number] SP [id number] MEDICAID [id number] S [id number] MEDICARE [id number] S [id number] J37 MEDICARE [id number] S [id number] A ANSI-Medicare Part B [id number] ANSI-Medicaid [id number] ANSI-Medicaid [id number] ANSI-Medicare Part B [id number] [facility] [id number] [facility] [id number] ANSI-Medicaid [id number] ANSI-Medicare Part B [id number] ANSI-Medicare Part B [id number] ANSI-Medicaid [id number] ANSI-Medicare Part B [id number] ANSI-Medicaid [id number] MEDICAID [id number] MEDICAID [id number] S [id number] MEDICAID -O/P [id number] MEDICARE -O/P [id number] 18 [id number] MEDICAID -PHYSICIAN [id number] MEDICARE -PHYSICIAN [id number] 18 [id number] MEDICARE [id number] Problems, Conditions, and Diagnoses Code Display Name Description Problem Type Effective Dates Data Source(s) E66.9 Obesity, unspecified OBESITY, UNSPECIFIED Diagnosis 09/05/2020 02:16:[address] [facility] E55.9 Vitamin D deficiency, unspecified VITAMIN D DEFI CIENCY, UNSPECIFIED Diagnosis 09/05/2020 02:16:[address] [facility] G40.909 Epilepsy, unspecified, not intractable, without status epilepticus EPILEPSY, UNSP, NOT INTRACTABLE, WITHOUT STATUS EPILEPTICUS Diagnosis 05/24/2020 07:47:00 PM [facility] Z68.37 Body mass index (BMI) 37.0-37.9, adult [place] INDEX [BMI] 37.0-37.9, ADULT Diagnosis 05/24/2020 07:47:00 PM [facility] spital E66.01 Morbid (severe) obesity due to excess ca lories MORBID (SEVERE) OBESITY DUE TO EXCESS CALORIES Diagnosis 05/24/2020 07:47:00 PM [facility] G47.33 Obstructive sleep apnea (adult) (pediatr ic) OBSTRUCTIVE SLEEP APNEA (ADULT) (PEDIATRIC) Diagnosis 05/24/2020 07:47:00 PM [facility] minnatal Surgeries/Procedures Procedure Description Date Indications Data Source(s) POLYSM SLEEP STAGING 4/> ADDL TONIA W/CPAP TX POLYSOM 6/>YRS CPAP 4/> PARM 05/25/2020 12:00:00 AM [facility] Results ID Date Data Source [id number] 09/07/2020 05:12:00 PM EDT [facility] Name Value Range Interpretation Code Description Data Deanne rce(s) Supporting Document(s) Levetiracetam result Normal (applies to non-num corona results) [facility] REFERENCE VALUE------ 10.0 - 40.0 ADDITIONAL INFORMATION This test was developed and its performance characteristics determined by [facility] in a manner consistent with CLIA requirements. This test has not been cleared or approved by the U.S. Food and Drug Administration. Test Performed by: [facility] - [address] [address] Phytopathology Teacher: Bryan Morgan M.D. Ph.D.; CLIA# [id number] ID Date Data Source [id number] 09/07/2020 04:12:00 PM EDT [facility] Name Value Range Interpretation Code Description Data Deanne rce(s) Supporting Document(s) Levetiracetam result Normal (applies to non-num corona results) [facility] REFERENCE VALUE------ 10.0 - 40.0 ADDITIONAL INFORMATION This test was developed and its performance characteristics determined by [facility] in a manner consistent with CLIA requirements. This test has not been cleared or approved by the U.S. Food and Drug Administration. Test Performed by: [facility] [place] [address] Phytopathology Teacher: Bryan Morgan M.D. Ph.D.; CLIA# [id number] ID Date Data Source [id number] 09/05/2020 03:50:00 PM EDT [facility] Name Value Range Interpretation Code Description Data Deanne rce(s) Supporting Document(s) Color,Urine Colorl-Dk Y Normal (applies to non-numeric res ults) [facility] Clarity,Urine Clear Normal (applies to non-numeric re sults) [facility] Specific [place],Urine 1.005-1.030 Normal (applies to non- numeric results) [facility] pH,Urine 5.0-8.0 Normal (applies to non-numeric resul ts) [facility] Protein,Urine Negative Normal (applies to non-numeric re sults) [facility] Glucose,Urine Negative Normal (applies to non-numeric re sults) [facility] Ketones,Urine Negative Normal (applies to non-numeric re sults) [facility] Blood,Urine Negative Normal (applies to non-numeric resu lts) [facility] Bilirubin,Urine Negative Normal (applies to non-numeric results) [facility] Urobilinogen,Urine 0.2-1.0 Normal (applies to non-numer ic results) [facility] Leukocyte Esterase,Urine Negative Normal (applies to non -numeric results) [facility] Nitrite,Urine Negative Normal (applies to non-numeric re sults) [facility] RBC,Urine None Seen Normal (applies to non-numeric resul ts) [facility] WBC,Urine None Seen Normal (applies to non-numeric resul ts) [facility] Casts,Urine None Seen Normal (applies to non-numeric resu lts) [facility] Epithelial Cells,Urine None - Few Normal (applies to non-n umeric results) [facility] Bacteria,Urine None Seen Normal (applies to non-numeric r esults) [facility] ID Date Data Source [id number] 09/05/2020 03:37:00 PM EDT [facility] Name Value Range Interpretation Code Description Data Deanne rce(s) Supporting Document(s) Vitamin D, Total 30.0-100.0 Normal (applies to non-numeric results) [facility] ID Date Data Source [id number] 09/05/2020 03:33:00 PM EDT [facility] Date/time of last Valproic dose? 9480-5838 Date/time of last Valproic dose? 3150-0098 Date/time of last Valproic dose? 6034-9002 Date/time of last Valproic dose? 0706-7713 Date/time of last Valproic dose? 5517-7769 Date/time of last Valproic dose? 5722-8006 Name Value Range Interpretation Code Description Data Deanne rce(s) Supporting Document(s) Sodium 140 mmol/L 136-145 Normal (applies to non-numeric resul ts) [facility] Potassium 3.5-5.1 Normal (applies to non-numeric resul ts) [facility] Chloride 102 mmol/L 98-107 Normal (applies to non-numeric resul ts) [facility] Carbon Dioxide CO2 21-32 Normal (applies to non-numer ic results) [facility] Anion Gap 5.0-16.0 Normal (applies to non-numeric resul ts) [facility] BUN 12 mg/dL 7-18 Normal (applies to non-numeric results) [facility] Creatinine,Serum 0.8-1.5 Normal (applies to non-numeric results) [facility] GFR >60 Normal (applies to non-numeric results) [facility] Glucose Level 95 mg/dL 60-99 Normal (applies to non-numeric re sults) [facility] Reference range is only applicable when patient is fasting Note the following drug interference: Sulfasalazine Sulfapyridine Can see falsely depressed Can see falsely elevated result with up to 17% results with up to 11% decrease in measurement increase in measurement Recommend patients be collected for this test prior to administration of either drug. Calcium 8.5-10.1 Normal (applies to non-numeric resul ts) [facility] Bilirubin,Total 0.1-1.9 Normal (applies to non-numeric results) [facility] SGOT(AST) 22 U/L 15-37 Normal (applies to non-numeric resul ts) [facility] Note the following drug interference: Sulfasalazine Sulfapyridine Can see falsely depressed Can see falsely elevated result with up to 10% results with up to 10% decrease in measurement increase in measurement Recommend patients be collected for this test prior to administration of either drug. SGPT(ALT) 51 U/L 12-78 Normal (applies to non-numeric resul ts) [facility] Note the following drug interference: Sulfasalazine Sulfapyridine Can see falsely depressed Can see falsely elevated result with up to 29% results with up to 10% decrease in measurement increase in measurement Recommend patients be collected for this test prior to administration of either drug. Alkaline Phosphatase 105 U/L 38-126 Normal (applies to non-num corona results) [facility] can increase Alkaline Phosp le vels up to 2 times the normal adult value. Normal values for children and adolescents are 2 to 3 times the normal adult value. Total Protein 6.0-8.2 Normal (applies to non-numeric re sults) [facility] Albumin Level 3.4-5.0 Normal (applies to non-numeric re sults) [facility] ID Date Data Source [id number] 09/05/2020 03:33:00 PM EDT [facility] Date/time of last Valproic dose? 8182-1583 Date/time of last Valproic dose? 6842-2106 Date/time of last Valproic dose? 7669-6107 Date/time of last Valproic dose? 5887-7334 Date/time of last Valproic dose? 6253-7295 Date/time of last Valproic dose? 4682-8319 Name Value Range Interpretation Code Description Data Deanne rce(s) Supporting Document(s) Phosphorus 2.5-4.9 Normal (applies to non-numeric resul ts) [facility] ID Date Data Source [id number] 09/05/2020 03:33:00 PM EDT [facility] Date/time of last Valproic dose? 3305-6894 Date/time of last Valproic dose? 1411-4053 Date/time of last Valproic dose? 6374-3899 Date/time of last Valproic dose? 1931-7722 Date/time of last Valproic dose? 7600-2136 Date/time of last Valproic dose? 1931-5488 Name Value Range Interpretation Code Description Data Deanne rce(s) Supporting Document(s) Magnesium 1.8-2.4 Normal (applies to non-numeric resul ts) [facility] ID Date Data Source [id number] 09/05/2020 03:33:00 PM EDT [facility] Date/time of last Valproic dose? 3980-6250 Date/time of last Valproic dose? 7690-7462 Date/time of last Valproic dose? 2159-9945 Date/time of last Valproic dose? 6518-7959 Date/time of last Valproic dose? 6638-4756 Date/time of last Valproic dose? 3670-9546 Name Value Range Interpretation Code Description Data Deanne rce(s) Supporting Document(s) Triglycerides 267 mg/dL <150 Above high normal [facility] Cholesterol 257 mg/dL 100-200 Above high normal [facility] LDL Cholesterol Calculated 165 0-130 Above high normal [facility] HDL Cholesterol 39 mg/dL 40-60 Below low normal [facility] Cholesterol/HDL Ratio 3.6-6.7 Normal (applies to non-nu meric results) [facility] ID Date Data Source [id number] 09/05/2020 03:33:00 PM EDT [facility] Date/time of last Valproic dose? 3085-4314 Date/time of last Valproic dose? 0898-9633 Date/time of last Valproic dose? 9127-9509 Date/time of last Valproic dose? 2998-5796 Date/time of last Valproic dose? 5719-5686 Date/time of last Valproic dose? 8936-3671 Name Value Range Interpretation Code Description Data Deanne rce(s) Supporting Document(s) Depakene (Valproic Acid) 50.0-100.0 Normal (applies to non -numeric results) [facility] ID Date Data Source [id number] 09/05/2020 03:33:00 PM EDT [facility] Date/time of last Valproic dose? 2147-7383 Date/time of last Valproic dose? 3958-4245 Date/time of last Valproic dose? 7053-9784 Date/time of last Valproic dose? 3922-7461 Date/time of last Valproic dose? 0740-7548 Date/time of last Valproic dose? 4821-6176 Name Value Range Interpretation Code Description Data Deanne rce(s) Supporting Document(s) Thyroid Stimulate Hormone TSH 0.358-3.74 No rmal (applies to non-numeric results) [facility] ID Date Data Source [id number] 09/05/2020 03:06:00 PM EDT [facility] Name Value Range Interpretation Code Description Data Deanne rce(s) Supporting Document(s) White Blood Count 3.5-10.5 Normal (applies to non-numeri c results) [facility] Red Blood Count 4.30-5.70 Normal (applies to non-numeric results) [facility] Hemoglobin 13.5-17.5 Normal (applies to non-numeric resul ts) [facility] Hematocrit 38.8-50.0 Normal (applies to non-numeric resul ts) [facility] Mean Corpuscular Volume 81.2-95.1 Normal (applies to non- numeric results) [facility] Mean Corpuscular Hgb 25.6-32.2 Normal (applies to non-num corona results) [facility] Mean Corpuscular Hgb Conc 32.0-36.0 Normal (applies to no n-numeric results) [facility] Red Cell Distribution Width 11.8-15.6 Normal (appli es to non-numeric results) [facility] Platelet Count 325 x10 3/uL 150-450 Normal (applies to non-numeric results) [facility] Mean Platelet Volume 9.4-12.4 Normal (applies to non-num corona results) [facility] Neutrophils% (Auto) 31.0-71.0 Normal (applies to non-nume milo results) [facility] Lymphocytes% (Auto) 20.0-55.0 Normal (applies to non-nume milo results) [facility] Monocytes% (Auto) 4.0-12.0 Normal (applies to non-numeri c results) [facility] Eosinophils% (Auto) 1.0-8.0 Normal (applies to non-nume milo results) [facility] Basophils% (Auto) 0.0-2.0 Normal (applies to non-numeri c results) [facility] Immature Granulocytes% (Auto) 0.0-2.0 Normal (huong lies to non-numeric results) [facility] Neutrophils# (Auto) 1.50-6.20 Normal (applies to non-nume milo results) [facility] Lymphocytes# (Auto) 1.20-4.00 Normal (applies to non-nume milo results) [facility] Monocytes# (Auto) 0.00-0.90 Normal (applies to non-numeri c results) [facility] Eosinophils# (Auto) 0.00-0.50 Normal (applies to non-nume milo results) [facility] Basophils# (Auto) 0.00-0.20 Normal (applies to non-numeri c results) [facility] Immature Granulocytes# (Auto) 0.00-7.00 No rmal (applies to non-numeric results) [facility] ID Date Data Source [id number] 04/30/2020 03:15:00 PM EST [facility] Name Value Range Interpretation Code Description Data Deanne rce(s) Supporting Document(s) Respiratory specimen severe acute respir atory syndrome coronavirus 2 (SARS-CoV-2) RNA [facility] This lab was ordered by [facility] cami and reported by [facility]. ID Date Data Source [id number] 05/01/2020 01:50:00 PM [facility] COVID-19 Specimen Source NASOPHARYNGEAL Is Patient admitted or to be admitted? NFirst test? NOEmployed in healthcare? NOSymptomatic per CDC? NOHospitalized? NOICU? NOResident in congregated care? ex intermediate, ARC NO? NO Name Value Range Interpretation Code Description Data Deanne rce(s) Supporting Document(s) SARS-CoV-2 RNA Negative Normal (applies to non-numeric r esults) [facility] This test has not been FDA cleared or ap proved. This test has been authorized by FDA under an EUA for use by authorized laboratories. This test has been authorized only for detection of nucleic acid from 2018-, not for any other viruses or pathogens. [...] history, and epidemiological information. Performed on the [employer] instrument THIS IS A STATE REPORTABLE COMMUNICABLE DISEASE. Performing Lab Normal (applies to non-numeric r esults) [facility] COVID-19 Specimen Source: RISK MANAGER First test ?: N Employed in healthcare?: N Symptomatic per CDC?: N Hospitalized?: N ICU?: N Resident in congregated care? ex intermediate, ARC: N ?: N Please indicate the Triage TierN Test performed [place] [address] ID Date Data Source [id number] 04/30/2020 03:24:00 PM EST [facility] COVID-19 Specimen Source NASOPHARYNGEAL Is Patient admitted or to be admitted? NFirst test? NOEmployed in healthcare? NOSymptomatic per CDC? NOHospitalized? NOICU? NOResident in congregated care? ex intermediate, ARC NO? NO Name Value Range Interpretation Code Description Data Deanne rce(s) Supporting Document(s) SARS-CoV-2 RNA Negative Normal (applies to non-numeric r esults) [facility] This test has not been [...] history, and epidemiological information. Performed on the [employer] Fusion instrument THIS IS A STATE REPORTABLE COMMUNICABLE DISEASE. Performing Lab Normal (applies to non-numeric r esults) [facility] COVID-19 Specimen Source: RISK MANAGER First test ?: N Employed in healthcare?: N Symptomatic per CDC?: N Hospitalized?: N ICU?: N Resident in congregated care? ex intermediate, ARC: N ?: N Please indicate the Triage TierN Test performed or referred by The [address] [address] ID Date Data Source [id number] 03/11/2020 01:47:00 AM EDT [facility] Name Value Range Interpretation Code Description Data Deanne rce(s) Supporting Document(s) Levetiracetam result Normal (applies to non-num corona results) [facility] REFERENCE VALUE------ 12.0 - 46.0 ADDITIONAL INFORMATION This test was developed and its performance characteristics determined by [facility] in a manner consistent with CLIA requirements. This test has not been cleared or approved by the U.S. Food and Drug Administration. Test Performed by: [facility] - [address] [address] Phytopathology Teacher: Bryan Morgan M.D. Ph.D.; CLIA# [id number] ID Date Data Source [id number] 03/10/2020 09:51:00 PM EDT [facility] Name Value Range Interpretation Code Description Data Deanne rce(s) Supporting Document(s) Levetiracetam result Normal (applies to non-num corona results) [facility] REFERENCE VALUE------ 12.0 - 46.0 ADDITIONAL INFORMATION This test was developed and its performance characteristics determined by [facility] in a manner consistent with CLIA requirements. This test has not been cleared or approved by the U.S. Food and Drug Administration. Test Performed by: [facility] - [facility] [address] [place] [address] Phytopathology Teacher: Bryan Morgan M.D. Ph.D.; CLIA# [id number] ID Date Data Source [id number] 03/06/2020 11:40:00 PM EDT [facility] Name Value Range Interpretation Code Description Data Deanne rce(s) Supporting Document(s) White Blood Count 3.5-10.5 Normal (applies to non-numeri c results) [facility] Red Blood Count 4.30-5.70 Normal (applies to non-numeric results) [facility] Hemoglobin 13.5-17.5 Normal (applies to non-numeric resul ts) [facility] Hematocrit 38.8-50.0 Normal (applies to non-numeric resul ts) [facility] Mean Corpuscular Volume 81.2-95.1 Normal (applies to non- numeric results) [facility] Mean Corpuscular Hgb 25.6-32.2 Normal (applies to non-num corona results) [facility] Mean Corpuscular Hgb Conc 32.0-36.0 Normal (applies to no n-numeric results) [facility] Red Cell Distribution Width 11.8-15.6 Normal (appli es to non-numeric results) [facility] Platelet Count 311 x10 3/uL 150-450 Normal (applies to non-numeric results) [facility] Mean Platelet Volume 9.4-12.4 Normal (applies to non-num corona results) [facility] Total Cells Counted (Manual) 100 Normal (applies to non-numeric results) [facility] Neutrophils% (Manual) 52 % 31-71 Normal (applies to non-nu meric results) [facility] Lymphocytes% (Manual) 37 % 20-55 Normal (applies to non-nu meric results) [facility] Monocytes% (Manual) 10 % 4-12 Normal (applies to non-nume milo results) [facility] Basophils% (Manual) 1 % 0-2 Normal (applies to non-nume milo results) [facility] Platelet Estimate (Manual) Agreement Normal (applie s to non-numeric results) [facility] Slide Reviewed By Normal (applies to non-numeri c results) [facility] Slide has been reviewed and findings con firmed by a technologist/pharmaceutical laboratory technician. ID Date Data Source [id number] 03/06/2020 11:32:00 PM EDT [facility] Name Value Range Interpretation Code Description Data Deanne rce(s) Supporting Document(s) Depakene (Valproic Acid) 50.0-100.0 PL [facility] KARIN L. read back critical information [id number] ID Date Data Source [id number] 03/06/2020 11:32:00 PM EDT [facility] Name Value Range Interpretation Code Description Data Deanne rce(s) Supporting Document(s) Sodium 140 mmol/L 136-145 Normal (applies to non-numeric resul ts) [facility] Potassium 3.5-5.1 Normal (applies to non-numeric resul ts) [facility] Chloride 103 mmol/L 98-107 Normal (applies to non-numeric resul ts) [facility] Carbon Dioxide CO2 21-32 Normal (applies to non-numer ic results) [facility] Anion Gap 5.0-16.0 Normal (applies to non-numeric resul ts) [facility] BUN 12 mg/dL 7-18 Normal (applies to non-numeric results) [facility] Creatinine,Serum 0.8-1.5 Normal (applies to non-numeric results) [facility] GFR >60 Normal (applies to non-numeric results) [facility] Glucose Level 182 mg/dL 60-99 Above high normal [facility] Reference range is only applicable when patient is fasting Note the following drug interference: Sulfasalazine Sulfapyridine Can see falsely depressed Can see falsely elevated result with up to 17% results with up to 11% decrease in measurement increase in measurement Recommend patients be collected for this test prior to administration of either drug. Calcium 8.5-10.1 Normal (applies to non-numeric resul ts) [facility] Bilirubin,Total 0.1-1.9 Normal (applies to non-numeric results) [facility] SGOT(AST) 32 U/L 15-37 Normal (applies to non-numeric resul ts) [facility] Note the following drug interference: Sulfasalazine Sulfapyridine Can see falsely depressed Can see falsely elevated result with up to 10% results with up to 10% decrease in measurement increase in measurement Recommend patients be collected for this test prior to administration of either drug. SGPT(ALT) 71 U/L 12-78 Normal (applies to non-numeric resul ts) [facility] Note the following drug interference: Sulfasalazine Sulfapyridine Can see falsely depressed Can see falsely elevated result with up to 29% results with up to 10% decrease in measurement increase in measurement Recommend patients be collected for this test prior to administration of either drug. Alkaline Phosphatase 97 U/L 38-126 Normal (applies to non-num corona results) [facility] can increase Alkaline Phosp le vels up to 2 times the normal adult value. Normal values for children and adolescents are 2 to 3 times the normal adult value. Total Protein 6.0-8.2 Normal (applies to non-numeric re sults) [facility] Albumin Level 3.4-5.0 Normal (applies to non-numeric re sults) [facility] Procedure Social History No Information Vital Signs ID Date Data Source [id number] 03/11/2020 01:47:00 AM EDT [facility] spital Name Value Range Interpretation Code Description Data Source(s) Weight Measurement Method 8 8 [facility] Weight 3200 3200 [facility] pital Temperature Source 7 7 [facility] Temperature 99 99 [place] [facility] Respiratory Effort 1 1 [facility] Respiratory Rate 14 14 [facility] Pulse Assessment Method 4 4 G [facility] Pulse Rate 117 117 [facility] pital Blood Pressure 133/88 133/88 [facility] Weight Measurement Method 8 8 [facility] Weight 3200 3200 [facility] pital Temperature Source 7 7 [facility] Temperature [address] [facility] spital Respiratory Effort 1 1 [facility] Respiratory Rate 20 20 [facility] Pulse Assessment Method 4 4 G [facility] Pulse Rate 125 125 [facility] pital Blood Pressure 137/93 137/93 [facility] Weight Measurement Method 8 8 [facility] Weight 3200 3200 [facility] pital Temperature Source 7 7 [facility] Temperature [address] [facility] spital Respiratory Effort 1 1 [facility] Respiratory Rate 20 20 [facility] Pulse Assessment Method 4 4 G [facility] Pulse Rate 120 120 [facility] pital Blood Pressure 126/93 126/93 [facility] Weight Measurement Method 8 8 [facility] Weight 3200 3200 [facility] pital Temperature Source 7 7 [facility] Temperature 99 99 [place] [facility] Respiratory Effort 1 1 [facility] Respiratory Rate 20 20 [facility] Pulse Assessment Method 4 4 G [facility] Pulse Rate 120 120 [facility] pital Blood Pressure 126/93 126/93 [facility]
[2021-03-05 17:24] VITALS: BP 143/81
== END 2021-03-05 17:55 | disposition home or self-care (01) ==
LOC: M ED 12:14
DX: R56.9 Unspecified convulsions (principal); Z76.0 Encounter for issue of repeat prescription

== ENCOUNTER 2021-05-17 20:42 | Emergency (ER) | payer MEDICARE, MEDICAID ==
[~2021-05-17] VITALS: Ht 180.3 cm; Wt 90.9 kg
[~2021-05-17 20:42] MED LIST changes: +DIVA500T94 PO; +LEVE10003 PO
[2021-05-17] MEDS ORDERED: NS 1,000 ML IV ONE (21:05)
[2021-05-17] MEDS ORDERED: ACETAMINOPHEN 325 MG TAB PO ONE (21:05)
[2021-05-17] MEDS ORDERED: levETIRAcetam 250MG TABLET (KEPPRA) PO ONE (21:10)
[2021-05-17] MEDS ORDERED: VALPROATE SOD INJ 500 MG in D5W 50 ML IV ONE (21:30)
[2021-05-17 21:34] LABS: BASO % 0.7 % (0.0-1.0); EOS % 0.2 % (0.0-3.0); HEMATOCRIT 38.8 % (42.0-52.0); HEMOGLOBIN 12.8 g/dl (13.5-17.5); LYMPH # 1.8 10^3/uL (1.5-5.0); LYMPH % 31.7 % (24.0-44.0); MEAN CORPUSCULAR HEMOGLOBIN 29.4 pg (27.0-33.0); MEAN CORPUSCULAR VOLUME 89.2 fl (80.0-96.0); MONO # 1.2 10^3/uL (0.0-0.8); NEUTROPHILS # 2.5 10^3/uL (1.5-8.5); NEUTROPHILS % 44.6 % (36.0-66.0); PLATELET COUNT, AUTOMATED 272 10^3/uL (150-450); RED BLOOD COUNT 4.35 10^6/uL (4.30-6.10); WHITE BLOOD COUNT 5.6 10^3/uL (4.0-10.0)
--- NOTE | 2021-05-17 21:50 | REPVR ---
PROCEDURE INFORMATION: Exam: XR Chest Exam date and time: 05/17/2021 9:19 PM Age: 35 years old Clinical indication: Shortness of breath; Additional info: Coronavirus workup TECHNIQUE: Imaging protocol: XR of the chest. Views: 1 view. COMPARISON: No relevant prior studies available. FINDINGS: Lungs: Suboptimal inspiratory effort. Increased density in the retrocardiac region. Possibility of an infiltrate not excluded. Follow-up PA and lateral chest films suggested when clinically feasible. Remaining lungs are clear. Pleural spaces: Unremarkable. No pleural effusion. No pneumothorax. Heart/Mediastinum: Unremarkable. No cardiomegaly. Bones/joints: Unremarkable. IMPRESSION: Increased density in the retrocardiac region. Possibility of an infiltrate not excluded. Follow-up PA and lateral chest films suggested when clinically feasible. Electronically signed by: Carter Garcia On 05/17/2021 21:49:29 PM
[2021-05-17 22:02] LABS: ALBUMIN 3.3 GM/DL (3.2-5.2); ALT/SGPT 67 U/L (12-78); BILIRUBIN,TOTAL 0.3 MG/DL (0.2-1.0); BLOOD UREA NITROGEN 9 MG/DL (7-18); C REACTIVE PROTEIN QUANTITATIV 2.32 MG/DL (0.00-0.30); CALCIUM LEVEL 8.3 MG/DL (8.5-10.1); CARBON DIOXIDE LEVEL 25 MEQ/L (21-32); CHLORIDE LEVEL 106 MEQ/L (98-107); CREATININE FOR GFR 1.08 MG/DL (0.70-1.30); FERRITIN 51 NG/ML (26-388); GLOMERULAR FILTRATION RATE > 60.0 (>60); GLUCOSE, FASTING 175 MG/DL (70-100); LDH LACTATE DEHYDROGENASE 357 U/L (87-241); MAGNESIUM LEVEL 1.8 MG/DL (1.8-2.4); POTASSIUM SERUM 4.8 MEQ/L (3.5-5.1); SODIUM LEVEL 137 MEQ/L (136-145); TOTAL PROTEIN 6.7 GM/DL (6.4-8.2); VALPROIC ACID (DEPAKOTE) 76.4 UG/ML (50.0-100.0)
[2021-05-17 22:04] LABS: CK-MB VALUE MASS < 1.0 NG/ML (<3.6); CPK CREATINE PHOSPHOKINASE 240 U/L (39-308); MB/CK RELATIVE INDEX 0.42 (< OR =4)
[2021-05-17 22:09] LABS: RSV AMPLIFICATION NEGATIVE (NEGATIVE)
[2021-05-17 23:07] VITALS: O2SAT 98
[2021-05-17 23:45] VITALS: BP 149/65
[2021-05-17 23:51] LABS: D-DIMER QUANT 435.55 ng/ml (<500)
--- NOTE | 2021-05-18 07:50 | ECGEPIP ---
[facility] - ED Test Date: 2021-05-17 Pat Name: DADA CHIANG Department: Room: - Gender: Male Commercial Leasing Manager: PAMELA : 1985 Requested By: MYNOR WELLS Order Number: [id number] Reading MD: Melania Dey Measurements Intervals [place] Rate: 112 P: 25 IA: 132 QRS: -3 QRSD: 88 T: 11 QT: 314 QTc: 428 Interpretive Statements Sinus tachycardia Minimal voltage criteria for LVH, may be normal variant ( R in aVL ) Inferior infarct , age undetermined No prior Electronically Signed on 05-18-2021 7:49:58 EST by Melania Dey
== END 2021-05-17 23:45 | disposition home or self-care (01) ==
LOC: M ED 20:42
DX: R00.0 Tachycardia, unspecified (principal); U07.1 COVID-19; R56.9 Unspecified convulsions; Z20.822 Contact with and (suspected) exposure to COVID-19; Z79.899 Other long term (current) drug therapy

== ENCOUNTER 2021-06-09 18:51 | Emergency (ER) | payer MEDICARE, MEDICAID ==
[~2021-06-09] VITALS: Ht 180.3 cm; Wt 114.1 kg
[2021-06-09 19:01] VITALS: BP 129/81
== END 2021-06-09 22:31 | disposition home or self-care (01) ==
LOC: M ED 18:51
DX: S93.402A Sprain of unspecified ligament of left ankle, initial encounter (principal); X50.1XXA Overexertion from prolonged static or awkward postures, initial encounter; Y92.009 Unspecified place in unspecified non-institutional (private) residence as the place of occurrence of the external cause; Y93.89 Activity, other specified; Y99.9 Unspecified external cause status; R56.9 Unspecified convulsions; Z79.899 Other long term (current) drug therapy

== ENCOUNTER 2021-11-19 00:25 | Emergency (ER) | payer MEDICARE, MEDICAID ==
[~2021-11-19] VITALS: Ht 170.2 cm; Wt 112.1 kg
[2021-11-19] MEDS ORDERED: NS 1,000 ML IV ONE (00:40)
[2021-11-19 01:18] LABS: BASO # 0.1 10^3/uL (0.0-0.2); BASO % 0.6 % (0.0-1.0); EOS # 0.1 10^3/uL (0.0-0.5); EOS % 1.1 % (0.0-3.0); HEMATOCRIT 42.4 % (42.0-52.0); HEMOGLOBIN 14.3 g/dl (13.5-17.5); LYMPH # 3.4 10^3/uL (1.5-5.0); LYMPH % 43.2 % (24.0-44.0); MEAN CORPUSCULAR HGB CONC 33.7 g/dl (32.0-36.5); MEAN CORPUSCULAR VOLUME 89.1 fl (80.0-96.0); MONO # 0.6 10^3/uL (0.0-0.8); MONO % 7.3 % (2.0-8.0); NEUTROPHILS # 3.7 10^3/uL (1.5-8.5); NEUTROPHILS % 46.8 % (36.0-66.0); PLATELET COUNT, AUTOMATED 310 10^3/uL (150-450); RED BLOOD COUNT 4.76 10^6/uL (4.30-6.10); WHITE BLOOD COUNT 7.9 10^3/uL (4.0-10.0)
[2021-11-19 01:46] LABS: ALBUMIN 3.5 GM/DL (3.2-5.2); ALT/SGPT 44 U/L (12-78); BILIRUBIN,DIRECT < 0.1 MG/DL (0.0-0.2); BILIRUBIN,TOTAL 0.4 MG/DL (0.2-1.0); BLOOD UREA NITROGEN 16 MG/DL (7-18); CALCIUM LEVEL 9.1 MG/DL (8.5-10.1); CARBON DIOXIDE LEVEL 26 MEQ/L (21-32); CHLORIDE LEVEL 103 MEQ/L (98-107); CREATININE FOR GFR 1.08 MG/DL (0.70-1.30); GLOMERULAR FILTRATION RATE > 60.0 (>60); GLUCOSE, FASTING 174 MG/DL (70-100); LIPASE 96 U/L (73-393); POTASSIUM SERUM 4.4 MEQ/L (3.5-5.1); SODIUM LEVEL 138 MEQ/L (136-145); VALPROIC ACID (DEPAKOTE) 52.5 UG/ML (50.0-100.0)
[2021-11-19 04:46] VITALS: BP 143/92
== END 2021-11-19 05:10 | disposition home or self-care (01) ==
LOC: EDBD 00:25 → M ED 00:25
DX: G40.909 Epilepsy, unspecified, not intractable, without status epilepticus (principal); R00.0 Tachycardia, unspecified; I45.19 Other right bundle-branch block; Z79.899 Other long term (current) drug therapy

== ENCOUNTER 2021-11-19 05:07 | Emergency (ER) | payer MEDICARE, MEDICAID ==
[~2021-11-19] VITALS: Ht 180.3 cm; Wt 112.1 kg
[2021-11-19] MEDS ORDERED: levETIRAcetam INJection 1,000 MG in D5W 100 ML IV ONE (05:10)
[2021-11-19] MEDS ORDERED: ISOVUE-370 76% 100ML VIAL As Ordered ONE ×2 (05:41→05:44)
[2021-11-19 05:50] LABS: HEMATOCRIT 44.9 % (42.0-52.0); HEMOGLOBIN 14.7 g/dl (13.5-17.5); MEAN CORPUSCULAR HEMOGLOBIN 29.5 pg (27.0-33.0); MEAN CORPUSCULAR HGB CONC 32.7 g/dl (32.0-36.5); MEAN CORPUSCULAR VOLUME 90.2 fl (80.0-96.0); PLATELET COUNT, AUTOMATED 387 10^3/uL (150-450); RED BLOOD COUNT 4.98 10^6/uL (4.30-6.10); WHITE BLOOD COUNT 13.9 10^3/uL (4.0-10.0)
[2021-11-19 06:18] LABS: ATYPICAL LYMPH 8 % (0-5); LYMPHOCYTES 32 % (16-44); NEUTROPHILS 60 % (28-66); PLATELET ESTIMATE NORMAL (NORMAL)
[2021-11-19 06:20] LABS: ALBUMIN 3.8 GM/DL (3.2-5.2); ALT/SGPT 43 U/L (12-78); BILIRUBIN,DIRECT < 0.1 MG/DL (0.0-0.2); BILIRUBIN,TOTAL 0.5 MG/DL (0.2-1.0); BLOOD UREA NITROGEN 13 MG/DL (7-18); CARBON DIOXIDE LEVEL 17 MEQ/L (21-32); CHLORIDE LEVEL 107 MEQ/L (98-107); CREATININE FOR GFR 1.17 MG/DL (0.70-1.30); GLOMERULAR FILTRATION RATE > 60.0 (>60); GLUCOSE, FASTING 178 MG/DL (70-100); POTASSIUM SERUM 4.3 MEQ/L (3.5-5.1); SODIUM LEVEL 139 MEQ/L (136-145); TOTAL PROTEIN 7.3 GM/DL (6.4-8.2)
[2021-11-19 06:55] LABS: AMPHETAMINES LEVEL URINE NEGATIVE (NEGATIVE); BARBITURATES URINE NEGATIVE (NEGATIVE); BENZODIAZEPINES URINE NEGATIVE (NEGATIVE); CANNABINOIDS URINE NEGATIVE (NEGATIVE); COCAINE METABOLITE URINE NEGATIVE (NEGATIVE); METHADONE URINE NEGATIVE (NEGATIVE); OPIATES URINE NEGATIVE (NEGATIVE); PHENCYCLIDINE URINE NEGATIVE (NEGATIVE)
[2021-11-19] MEDS ORDERED: NS 1,000 ML IV ONE (07:25)
[2021-11-19] MEDS ORDERED: DIVALPROEX 250MG *ER* TAB PO ONE (08:25)
[2021-11-19] MEDS ORDERED: levETIRAcetam 250MG TABLET (KEPPRA) PO ONE (08:35)
[2021-11-19 09:00] VITALS: BP 143/90
[2021-11-19 09:37] VITALS: O2SAT 98
== END 2021-11-19 09:40 | disposition home or self-care (01) ==
LOC: M ED 05:07
DX: G40.909 Epilepsy, unspecified, not intractable, without status epilepticus (principal); S09.90XA Unspecified injury of head, initial encounter; S62.91XA Unspecified fracture of right hand, initial encounter for closed fracture; W19.XXXA Unspecified fall, initial encounter; Y92.410 Unspecified street and highway as the place of occurrence of the external cause; I45.19 Other right bundle-branch block; R91.8 Other nonspecific abnormal finding of lung field; Z79.899 Other long term (current) drug therapy
CPT/HCPCS: 70450; 70486; 71045; 71260; 72125; 73130; 74177; 80048; 80076; 80164; 80180; 80307; 83605; 83690; 84443; 85025; 93005; 93041; 94760; 96365; 96366; 99285; J1953; Q9967

== ENCOUNTER → 2021-12-26 | Outpatient (CLI) | payer MEDICARE, MEDICAID | LOC: M RAD 15:02 | PROVIDERS: ATTEND Physician Assistant | DX: M25.531 Pain in right wrist (principal); R93.6 Abnormal findings on diagnostic imaging of limbs ==

== ENCOUNTER 2022-01-19 20:44 | Emergency (ER) | payer MEDICARE, MEDICAID ==
[~2022-01-19] VITALS: Ht 180.3 cm; Wt 90.1 kg
[2022-01-19 21:53] VITALS: BP 138/69
[2022-01-20] MEDS ORDERED: LEVE10003 PO (17:11)
== END 2022-01-19 21:56 | disposition left against medical advice (07) ==
LOC: EDBD 20:44 → M ED 20:44
DX: R56.9 Unspecified convulsions (principal); B88.9 Infestation, unspecified; Z53.9 Procedure and treatment not carried out, unspecified reason; Z79.899 Other long term (current) drug therapy

== ENCOUNTER 2022-01-20 15:15 | Emergency (ER) | payer MEDICARE, MEDICAID ==
[2022-01-20] MEDS ORDERED: VALPROATE SOD INJ 500 MG in D5W MINI-BAG PLUS 50 ML IV ONE (15:30)
[2022-01-20] MEDS ORDERED: levETIRAcetam INJection 1,000 MG in D5W 100 ML IV ONE (15:30)
[2022-01-20 16:08] LABS: BASO # 0.1 10^3/uL (0.0-0.2); BASO % 0.8 % (0.0-1.0); EOS % 0.5 % (0.0-3.0); HEMOGLOBIN 14.4 g/dl (13.5-17.5); LYMPH # 2.3 10^3/uL (1.5-5.0); LYMPH % 34.1 % (24.0-44.0); MEAN CORPUSCULAR HEMOGLOBIN 30.3 pg (27.0-33.0); MEAN CORPUSCULAR HGB CONC 34.3 g/dl (32.0-36.5); MEAN CORPUSCULAR VOLUME 88.2 fl (80.0-96.0); MONO # 0.6 10^3/uL (0.0-0.8); MONO % 8.7 % (2.0-8.0); NEUTROPHILS # 3.6 10^3/uL (1.5-8.5); NEUTROPHILS % 53.9 % (36.0-66.0); PLATELET COUNT, AUTOMATED 243 10^3/uL (150-450); RED BLOOD COUNT 4.76 10^6/uL (4.30-6.10); WHITE BLOOD COUNT 6.6 10^3/uL (4.0-10.0)
[2022-01-20 16:48] LABS: ALBUMIN 3.4 GM/DL (3.2-5.2); ALT/SGPT 40 U/L (12-78); BILIRUBIN,DIRECT < 0.1 MG/DL (0.0-0.2); BILIRUBIN,TOTAL 0.4 MG/DL (0.2-1.0); BLOOD UREA NITROGEN 14 MG/DL (7-18); CALCIUM LEVEL 8.7 MG/DL (8.5-10.1); CARBON DIOXIDE LEVEL 25 MEQ/L (21-32); CHLORIDE LEVEL 105 MEQ/L (98-107); CREATININE FOR GFR 1.05 MG/DL (0.70-1.30); GLOMERULAR FILTRATION RATE > 60.0 (>60); GLUCOSE, FASTING 157 MG/DL (70-100); POTASSIUM SERUM 4.5 MEQ/L (3.5-5.1); SODIUM LEVEL 137 MEQ/L (136-145); TOTAL PROTEIN 6.8 GM/DL (6.4-8.2); VALPROIC ACID (DEPAKOTE) 91.7 UG/ML (50.0-100.0)
[2022-01-20] MEDS ORDERED: LEVE10003 PO (17:11)
[2022-01-20 17:15] VITALS: BP 146/81
== END 2022-01-20 17:25 | disposition home or self-care (01) ==
LOC: M ED 15:15 → EDBD 15:15 → M ED 17:25
DX: R56.9 Unspecified convulsions (principal); E11.9 Type 2 diabetes mellitus without complications; Z79.899 Other long term (current) drug therapy
CPT/HCPCS: 80048; 80076; 80164; 80180; 83605; 84443; 85025; 93005; 93041; 94760; 96365; 96375; 99285; J1953

== ENCOUNTER 2022-02-18 21:43 | Emergency (ER) | payer MEDICARE, MEDICAID ==
[~2022-02-18] VITALS: Ht 180.3 cm; Wt 109.1 kg
[2022-02-18] MEDS ORDERED: levETIRAcetam INJection 1,500 MG in D5W 100 ML IV ONE (21:55)
[2022-02-18] MEDS ORDERED: VALPROATE SOD INJ 1,000 MG in D5W 50 ML IV ONE (23:00)
[2022-02-18 23:23] LABS: BASO # 0.1 10^3/uL (0.0-0.2); BASO % 0.7 % (0.0-1.0); EOS # 0.1 10^3/uL (0.0-0.5); EOS % 0.6 % (0.0-3.0); HEMATOCRIT 40.4 % (42.0-52.0); HEMOGLOBIN 13.8 g/dl (13.5-17.5); LYMPH # 1.6 10^3/uL (1.5-5.0); LYMPH % 19.5 % (24.0-44.0); MEAN CORPUSCULAR HEMOGLOBIN 30.2 pg (27.0-33.0); MEAN CORPUSCULAR HGB CONC 34.2 g/dl (32.0-36.5); MEAN CORPUSCULAR VOLUME 88.4 fl (80.0-96.0); MONO # 0.7 10^3/uL (0.0-0.8); MONO % 8.8 % (2.0-8.0); NEUTROPHILS # 5.8 10^3/uL (1.5-8.5); NEUTROPHILS % 69.6 % (36.0-66.0); PLATELET COUNT, AUTOMATED 270 10^3/uL (150-450); RED BLOOD COUNT 4.57 10^6/uL (4.30-6.10); WHITE BLOOD COUNT 8.4 10^3/uL (4.0-10.0)
[2022-02-19 00:01] LABS: ALBUMIN 3.6 GM/DL (3.2-5.2); ALT/SGPT 63 U/L (12-78); BILIRUBIN,DIRECT < 0.1 MG/DL (0.0-0.2); BILIRUBIN,TOTAL 0.3 MG/DL (0.2-1.0); BLOOD UREA NITROGEN 17 MG/DL (7-18); CALCIUM LEVEL 8.6 MG/DL (8.5-10.1); CARBON DIOXIDE LEVEL 27 MEQ/L (21-32); CHLORIDE LEVEL 104 MEQ/L (98-107); CREATININE FOR GFR 1.15 MG/DL (0.70-1.30); GLOMERULAR FILTRATION RATE > 60.0 (>60); GLUCOSE, FASTING 224 MG/DL (70-100); POTASSIUM SERUM 4.3 MEQ/L (3.5-5.1); SODIUM LEVEL 136 MEQ/L (136-145); VALPROIC ACID (DEPAKOTE) < 3.0 UG/ML (50.0-100.0)
[2022-02-19 02:45] VITALS: BP 116/63
== END 2022-02-19 03:28 | disposition home or self-care (01) ==
LOC: M ED 21:43
DX: G40.909 Epilepsy, unspecified, not intractable, without status epilepticus (principal); Z91.199 Patient's noncompliance with other medical treatment and regimen due to unspecified reason; S00.03XA Contusion of scalp, initial encounter; Z79.899 Other long term (current) drug therapy

== ENCOUNTER 2022-05-08 23:04 | Emergency (ER) | payer MEDICARE, MEDICAID | END 2022-05-09 01:23 | disposition left against medical advice (07) | LOC: M ED 23:04 | DX: Z53.21 Procedure and treatment not carried out due to patient leaving prior to being seen by health care provider (principal) ==

== ENCOUNTER 2022-06-09 00:30 | Emergency (ER) | payer MEDICARE, MEDICAID ==
[2022-06-09] MEDS ORDERED: levETIRAcetam INJection 1,500 MG in D5W 100 ML IV ONE (00:55)
[2022-06-09] MEDS ORDERED: NS 1,000 ML IV ONE (01:00)
[2022-06-09 01:20] LABS: BLOOD UREA NITROGEN 16 MG/DL (9-23); CALCIUM LEVEL 8.4 MG/DL (8.5-10.1); CARBON DIOXIDE LEVEL 22 MMOL/L (20-31); CHLORIDE LEVEL 100 MMOL/L (98-107); CREATININE FOR GFR 0.89 MG/DL (0.70-1.30); GLOMERULAR FILTRATION RATE > 60.0 (>60); GLUCOSE, FASTING 237 MG/DL (60-100); POTASSIUM SERUM 4.2 MMOL/L (3.5-5.1); SODIUM LEVEL 136 MMOL/L (136-145)
[2022-06-09 02:15] VITALS: BP 147/74
== END 2022-06-09 02:28 | disposition home or self-care (01) ==
LOC: EDBD 00:30 → M ED 00:30
DX: G40.909 Epilepsy, unspecified, not intractable, without status epilepticus (principal); Z91.14 Patient's other noncompliance with medication regimen; Z79.899 Other long term (current) drug therapy
CPT/HCPCS: 36415; 80048; 80164; 80180; 96361; 96374; 99284; J1953

== ENCOUNTER → 2022-11-26 | Outpatient (REF) | payer MEDICARE, MEDICAID ==
[~2022-11-26] MED LIST changes: +MAGN400T2 PO
[2022-11-26 17:54] LABS: ALBUMIN 3.6 G/DL (3.2-5.2); ALKALINE PHOSPHATASE 110 U/L (46-116); ALT/SGPT 36 U/L (7.0-40); AST/SGOT 14 U/L (<34); BILIRUBIN,TOTAL 0.5 MG/DL (0.3-1.2); BLOOD UREA NITROGEN 11 MG/DL (9-23); CALCIUM LEVEL 9.9 MG/DL (8.5-10.1); CARBON DIOXIDE LEVEL 29 MMOL/L (20-31); CHLORIDE LEVEL 99 MMOL/L (98-107); CHOLESTEROL LEVEL 182 MG/DL (<200); CREATININE FOR GFR 0.84 MG/DL (0.70-1.30); GLOMERULAR FILTRATION RATE > 60.0 (>60); GLUCOSE, FASTING 259 MG/DL (60-100); HDL CHOLESTEROL 37.1 MG/DL (>40); NON-HDL-C 144.9 MG/DL; POTASSIUM SERUM 4.7 MMOL/L (3.5-5.1); SODIUM LEVEL 135 MMOL/L (136-145); TOTAL PROTEIN 6.8 G/DL (5.7-8.2); TRIGLYCERIDES LEVEL 446 MG/DL (<150)
[2022-11-26 17:56] LABS: THYROID STIMULATING HORMONE 3.966 uIU/ML (0.55-4.78)
[2022-11-26 18:25] LABS: HEMOGLOBIN A1c 8.4 % (4.0-6.0)
== END ==
LOC: M LAB REF 16:34
PROVIDERS: ATTEND Family Medicine Addiction Medicine
DX: E11.69 Type 2 diabetes mellitus with other specified complication (principal)

== ENCOUNTER 2023-03-03 09:39 | Emergency (ER) | payer MEDICARE, MEDICAID ==
[~2023-03-03] VITALS: Ht 180.3 cm; Wt 101.6 kg
[~2023-03-03 09:39] MED LIST changes: +DEPA250T2 PO; +VIMP100T PO
[2023-03-03 10:48] LABS: VALPROIC ACID (DEPAKOTE) < 3.0 UG/ML (50.0-100.0)
[2023-03-03 10:49] LABS: BLOOD UREA NITROGEN 15 MG/DL (9-23); CALCIUM LEVEL 8.9 MG/DL (8.5-10.1); CARBON DIOXIDE LEVEL 24 MMOL/L (20-31); CHLORIDE LEVEL 103 MMOL/L (98-107); CREATININE FOR GFR 1.02 MG/DL (0.70-1.30); GLOMERULAR FILTRATION RATE > 60.0 (>60); GLUCOSE, FASTING 304 MG/DL (60-100); POTASSIUM SERUM 4.3 MMOL/L (3.5-5.1); SODIUM LEVEL 136 MMOL/L (136-145)
[2023-03-03 11:06] VITALS: BP 136/89; O2SAT 97
[2023-03-03 11:16] VITALS: TEMP 97.9
[2023-03-03] MEDS ORDERED: VALPROATE SOD INJ 750 MG in D5W 50 ML IV ONE (12:00)
== END 2023-03-03 13:21 | disposition home or self-care (01) ==
LOC: M ED 09:39
DX: G40.909 Epilepsy, unspecified, not intractable, without status epilepticus (principal); E11.9 Type 2 diabetes mellitus without complications; Z79.810 Long term (current) use of selective estrogen receptor modulators (SERMs); Z79.899 Other long term (current) drug therapy

== ENCOUNTER → 2023-03-16 | Outpatient (REF) | payer MEDICARE, MEDICAID ==
[2023-03-16 17:38] LABS: HEMOGLOBIN A1c 7.7 % (4.0-6.0)
[2023-03-16 17:53] LABS: THYROID STIMULATING HORMONE 2.783 uIU/ML (0.55-4.78)
[2023-03-16 17:55] LABS: ALKALINE PHOSPHATASE 87 U/L (46-116); ALT/SGPT 85 U/L (7.0-40); AST/SGOT 47 U/L (<34); BILIRUBIN,TOTAL 1.1 MG/DL (0.3-1.2); BLOOD UREA NITROGEN 10 MG/DL (9-23); CALCIUM LEVEL 9.5 MG/DL (8.5-10.1); CARBON DIOXIDE LEVEL 28 MMOL/L (20-31); CHLORIDE LEVEL 100 MMOL/L (98-107); CHOLESTEROL LEVEL 155 MG/DL (<200); CHOLESTEROL RISK RATIO 4.15 (<5); CREATININE FOR GFR 0.94 MG/DL (0.70-1.30); GLOMERULAR FILTRATION RATE > 60.0 (>60); GLUCOSE, FASTING 173 MG/DL (60-100); HDL CHOLESTEROL 37.3 MG/DL (>40); LDL CHOLESTEROL 67.5 MG/DL (<100); NON-HDL-C 117.7 MG/DL; POTASSIUM SERUM 4.3 MMOL/L (3.5-5.1); SODIUM LEVEL 140 MMOL/L (136-145); TOTAL PROTEIN 7.1 G/DL (5.7-8.2); TRIGLYCERIDES LEVEL 251 MG/DL (<150)
[2023-03-16 18:01] LABS: CREATININE, URINE 494.7 MG/DL
== END ==
LOC: M LAB REF 16:17
PROVIDERS: ATTEND Family Medicine Addiction Medicine
DX: E11.69 Type 2 diabetes mellitus with other specified complication (principal)

== ENCOUNTER 2023-05-06 12:51 | Emergency (ER) | payer MEDICARE, MEDICAID ==
[~2023-05-06] VITALS: Ht 180.3 cm; Wt 99.3 kg
[2023-05-06 12:53] VITALS: BP 132/85; TEMP 96.7; O2SAT 99
== END 2023-05-06 15:22 | disposition left against medical advice (07) ==
LOC: M ED 12:51
DX: Z20.828 Contact with and (suspected) exposure to other viral communicable diseases (principal); E11.9 Type 2 diabetes mellitus without complications; G40.909 Epilepsy, unspecified, not intractable, without status epilepticus; F10.10 Alcohol abuse, uncomplicated; Z79.899 Other long term (current) drug therapy; Z53.9 Procedure and treatment not carried out, unspecified reason

== ENCOUNTER 2023-05-12 13:48 | Emergency (ER) | payer MEDICARE, MEDICAID ==
[~2023-05-12] VITALS: Ht 180.3 cm; Wt 95.9 kg
[2023-05-12] MEDS ORDERED: DIVA500T9 (14:13)
[2023-05-12] MEDS ORDERED: LEVE10003 (14:13)
[2023-05-12] MEDS ORDERED: METF-818 (14:13)
[2023-05-12 17:26] LABS: RSV AMPLIFICATION NEGATIVE (NEGATIVE)
[2023-05-12] MEDS ORDERED: BENZ200C70 PO (17:55)
[2023-05-12 18:08] VITALS: BP 130/91; TEMP 99; O2SAT 98
== END 2023-05-12 18:10 | disposition home or self-care (01) ==
LOC: M ED 13:48
DX: J06.9 Acute upper respiratory infection, unspecified (principal); E11.9 Type 2 diabetes mellitus without complications; G40.909 Epilepsy, unspecified, not intractable, without status epilepticus; Z79.4 Long term (current) use of insulin; Z79.899 Other long term (current) drug therapy

== ENCOUNTER 2023-10-14 20:18 | Emergency (ER) | payer MEDICARE, MEDICAID ==
[~2023-10-14] VITALS: Ht 180.3 cm; Wt 95.8 kg
[~2023-10-14 20:18] MED LIST changes: +BENZ200C70 PO; +METF-818
[2023-10-14] MEDS ORDERED: LORazepam 2 MG/ML 1ML VIAL IV PRN (20:25)
[2023-10-14] MEDS: NS 1,000 ML IV ONE ×2 (20:25→22:10)
[2023-10-14 20:46] LABS: BASO # 0.1 10^3/uL (0.0-0.2); BASO % 0.5 % (0.0-1.0); EOS # 0.1 10^3/uL (0.0-0.5); EOS % 0.5 % (0.0-3.0); HEMATOCRIT 45.6 % (42.0-52.0); HEMOGLOBIN 15.7 g/dl (13.5-17.5); LYMPH # 4.6 10^3/uL (1.5-5.0); LYMPH % 39.1 % (24.0-44.0); MEAN CORPUSCULAR HEMOGLOBIN 30.8 pg (27.0-33.0); MEAN CORPUSCULAR HGB CONC 34.4 g/dl (32.0-36.5); MEAN CORPUSCULAR VOLUME 89.6 fl (80.0-96.0); MONO # 0.8 10^3/uL (0.0-0.8); MONO % 7.1 % (2.0-8.0); NEUTROPHILS % 51.2 % (36.0-66.0); PLATELET COUNT, AUTOMATED 389 10^3/uL (150-450); RED BLOOD COUNT 5.09 10^6/uL (4.30-6.10); WHITE BLOOD COUNT 11.7 10^3/uL (4.0-10.0)
[2023-10-14 21:09] LABS: AMPHETAMINES LEVEL URINE NEGATIVE (NEGATIVE); BARBITURATES URINE NEGATIVE (NEGATIVE); BENZODIAZEPINES URINE NEGATIVE (NEGATIVE); CANNABINOIDS URINE NEGATIVE (NEGATIVE); COCAINE METABOLITE URINE NEGATIVE (NEGATIVE); METHADONE URINE NEGATIVE (NEGATIVE); OPIATES URINE NEGATIVE (NEGATIVE); PHENCYCLIDINE URINE NEGATIVE (NEGATIVE); VALPROIC ACID (DEPAKOTE) < 3.0 UG/ML (50.0-100.0)
[2023-10-14 21:11] LABS: ALKALINE PHOSPHATASE 101 U/L (46-116); ALT/SGPT 47 U/L (7.0-40); AST/SGOT 26 U/L (<34); BILIRUBIN,DIRECT 0.1 MG/DL (<0.4); BILIRUBIN,TOTAL 0.5 MG/DL (0.3-1.2); BLOOD UREA NITROGEN 12 MG/DL (9-23); CALCIUM LEVEL 8.8 MG/DL (8.5-10.1); CARBON DIOXIDE LEVEL 19 MMOL/L (20-31); CHLORIDE LEVEL 103 MMOL/L (98-107); CREATININE FOR GFR 0.84 MG/DL (0.70-1.30); GLOMERULAR FILTRATION RATE > 60.0 (>60); GLUCOSE, FASTING 225 MG/DL (60-100); MAGNESIUM LEVEL 1.9 MG/DL (1.8-2.4); POTASSIUM SERUM 4.4 MMOL/L (3.5-5.1); SODIUM LEVEL 137 MMOL/L (136-145); TOTAL PROTEIN 7.2 G/DL (5.7-8.2)
[2023-10-14] MEDS: VALPROATE SOD INJ 1,000 MG in D5W 50 ML IV ONE (21:20)
[2023-10-14 22:15] VITALS: BP 133/98; TEMP 98; O2SAT 98
[2023-10-14] MEDS ORDERED: DIVA500T9 PO (22:27)
== END 2023-10-14 22:47 | disposition home or self-care (01) ==
LOC: M ED 20:18
DX: G40.909 Epilepsy, unspecified, not intractable, without status epilepticus (principal); Z91.148 Patient's other noncompliance with medication regimen for other reason; Z79.4 Long term (current) use of insulin; Z79.899 Other long term (current) drug therapy

== ENCOUNTER 2023-11-18 12:44 | Emergency (ER) | payer MEDICARE, MEDICAID ==
[2023-11-18] MEDS ORDERED: LORazepam 2 MG/ML 1ML VIAL IV PRN (13:00)
[2023-11-18 13:25] LABS: IONIZED CALCIUM 4.7 MG/DL (4.5-5.3); VENOUS BASE EXCESS -3.9 (-2.0-2.0); VENOUS HCO3 23.3 MMOL/L (23.0-27.0); VENOUS O2 SATURATION 64.5 % (60.0-80.0); VENOUS PARTIAL PRESSURE O2 34.3 mmHg (30.0-50.0); VENOUS PH 7.286 UNITS (7.330-7.430); VENOUS STANDARD HCO3 20.5 MMOL/L; VENOUS TOTAL CO2 24.8 MMOL/L (24.0-28.0)
[2023-11-18 13:31] LABS: BASO # 0.1 10^3/uL (0.0-0.2); BASO % 0.7 % (0.0-1.0); EOS % 0.4 % (0.0-3.0); HEMATOCRIT 42.2 % (42.0-52.0); HEMOGLOBIN 14.6 g/dl (13.5-17.5); LYMPH # 2.2 10^3/uL (1.5-5.0); MEAN CORPUSCULAR HGB CONC 34.6 g/dl (32.0-36.5); MEAN CORPUSCULAR VOLUME 89.6 fl (80.0-96.0); MONO # 0.5 10^3/uL (0.0-0.8); MONO % 6.8 % (2.0-8.0); NEUTROPHILS # 3.9 10^3/uL (1.5-8.5); NEUTROPHILS % 58.1 % (36.0-66.0); PLATELET COUNT, AUTOMATED 209 10^3/uL (150-450); RED BLOOD COUNT 4.71 10^6/uL (4.30-6.10); WHITE BLOOD COUNT 6.8 10^3/uL (4.0-10.0)
[2023-11-18] MEDS: VALPROATE SOD INJ 1,000 MG in D5W 50 ML IV ONE (13:33)
[2023-11-18 13:52] LABS: VALPROIC ACID (DEPAKOTE) < 3.0 UG/ML (50.0-100.0)
[2023-11-18 13:54] LABS: ALKALINE PHOSPHATASE 100 U/L (46-116); ALT/SGPT 38 U/L (7.0-40); AST/SGOT 11 U/L (<34); BILIRUBIN,DIRECT 0.1 MG/DL (<0.4); BILIRUBIN,TOTAL 0.5 MG/DL (0.3-1.2); BLOOD UREA NITROGEN 8 MG/DL (9-23); CARBON DIOXIDE LEVEL 25 MMOL/L (20-31); CHLORIDE LEVEL 104 MMOL/L (98-107); CREATININE FOR GFR 0.86 MG/DL (0.70-1.30); GLOMERULAR FILTRATION RATE > 60.0 (>60); GLUCOSE, FASTING 337 MG/DL (60-100); MAGNESIUM LEVEL 1.8 MG/DL (1.8-2.4); SODIUM LEVEL 135 MMOL/L (136-145)
[2023-11-18 14:30] VITALS: BP 143/66; O2SAT 98
[2023-11-18 14:47] VITALS: TEMP 97.5
== END 2023-11-18 14:48 | disposition home or self-care (01) ==
LOC: EDBD 12:44 → M ED 12:44
DX: G40.301 Generalized idiopathic epilepsy and epileptic syndromes, not intractable, with status epilepticus (principal); Z91.148 Patient's other noncompliance with medication regimen for other reason; E11.9 Type 2 diabetes mellitus without complications; Z79.84 Long term (current) use of oral hypoglycemic drugs; Z79.899 Other long term (current) drug therapy

== ENCOUNTER → 2024-02-12 | Outpatient (CLI) | payer MEDICARE, MEDICAID ==
[2024-02-12 13:59] LABS: BASO % 0.7 % (0.0-1.0); EOS % 0.7 % (0.0-3.0); HEMATOCRIT 45.6 % (42.0-52.0); HEMOGLOBIN 15.4 g/dl (13.5-17.5); LYMPH # 2.4 10^3/uL (1.5-5.0); LYMPH % 41.3 % (24.0-44.0); MEAN CORPUSCULAR HEMOGLOBIN 30.7 pg (27.0-33.0); MEAN CORPUSCULAR HGB CONC 33.8 g/dl (32.0-36.5); MEAN CORPUSCULAR VOLUME 90.8 fl (80.0-96.0); MONO # 0.5 10^3/uL (0.0-0.8); MONO % 9.3 % (2.0-8.0); NEUTROPHILS # 2.7 10^3/uL (1.5-8.5); NEUTROPHILS % 46.3 % (36.0-66.0); PLATELET COUNT, AUTOMATED 294 10^3/uL (150-450); RED BLOOD COUNT 5.02 10^6/uL (4.30-6.10); WHITE BLOOD COUNT 5.8 10^3/uL (4.0-10.0)
[2024-02-12 14:24] LABS: ALBUMIN 3.7 G/DL (3.2-5.2); ALKALINE PHOSPHATASE 89 U/L (46-116); ALT/SGPT 83 U/L (7.0-40); AST/SGOT 44 U/L (<34); BILIRUBIN,TOTAL 0.4 MG/DL (0.3-1.2); BLOOD UREA NITROGEN 10 MG/DL (9-23); CALCIUM LEVEL 9.3 MG/DL (8.5-10.1); CARBON DIOXIDE LEVEL 29 MMOL/L (20-31); CHLORIDE LEVEL 107 MMOL/L (98-107); CREATININE FOR GFR 0.92 MG/DL (0.70-1.30); GLOMERULAR FILTRATION RATE > 60.0 (>60); GLUCOSE, FASTING 163 MG/DL (60-100); POTASSIUM SERUM 4.2 MMOL/L (3.5-5.1); SODIUM LEVEL 139 MMOL/L (136-145); TOTAL PROTEIN 7.1 G/DL (5.7-8.2)
== END ==
LOC: M LAB 11:59
PROVIDERS: ATTEND Nurse Practitioner Family
DX: G40.309 Generalized idiopathic epilepsy and epileptic syndromes, not intractable, without status epilepticus (principal)

== ENCOUNTER 2024-04-12 01:56 | Emergency (ER) | payer MEDICARE, MEDICAID ==
[~2024-04-12] VITALS: Ht 180.3 cm; Wt 102.2 kg
[~2024-04-12 01:56] MED LIST changes: +METF-1157; -METF-818
[2024-04-12] MEDS ORDERED: LORazepam 2 MG/ML 1ML VIAL IV PRN (02:10)
[2024-04-12 02:21] LABS: IONIZED CALCIUM 4.8 MG/DL (4.5-5.3)
[2024-04-12 02:28] LABS: BASO % 0.4 % (0.0-1.0); HEMATOCRIT 41.6 % (42.0-52.0); HEMOGLOBIN 13.9 g/dl (13.5-17.5); LYMPH # 1.5 10^3/uL (1.5-5.0); LYMPH % 16.7 % (24.0-44.0); MEAN CORPUSCULAR HEMOGLOBIN 30.2 pg (27.0-33.0); MEAN CORPUSCULAR HGB CONC 33.4 g/dl (32.0-36.5); MEAN CORPUSCULAR VOLUME 90.2 fl (80.0-96.0); MONO # 0.6 10^3/uL (0.0-0.8); NEUTROPHILS # 6.9 10^3/uL (1.5-8.5); NEUTROPHILS % 74.8 % (36.0-66.0); PLATELET COUNT, AUTOMATED 276 10^3/uL (150-450); RED BLOOD COUNT 4.61 10^6/uL (4.30-6.10); WHITE BLOOD COUNT 9.2 10^3/uL (4.0-10.0)
[2024-04-12 02:37] LABS: ABG BASE EXCESS -6.2 (-2.0-2.0); ABG HCO3 18.4 MMOL/L (22.0-26.0); ABG O2 SATURATION 96.8 % (95.0-99.0); ABG PARTIAL PRESSURE CO2 34.1 mmHg (35.0-45.0); ABG PARTIAL PRESSURE O2 92.6 mmHg (75.0-100.0); ABG STANDARD HCO3 19.4 MMOL/L. (22.0-26.0); ABG TOTAL CO2 19.5 MMOL/L (22.0-29.0)
[2024-04-12 02:57] LABS: ETHYL ALCOHOL (ETHANOL) < 0.003 % (0.000-0.010)
[2024-04-12 02:59] LABS: ALBUMIN 3.2 G/DL (3.2-5.2); ALKALINE PHOSPHATASE 79 U/L (40-129); ALT/SGPT 35 U/L (7.0-40); AST/SGOT 30 U/L (<34); BILIRUBIN,DIRECT < 0.1 MG/DL (<0.4); BILIRUBIN,TOTAL 0.4 MG/DL (0.3-1.2); BLOOD UREA NITROGEN 20 MG/DL (9-23); CALCIUM LEVEL 9.2 MG/DL (8.5-10.1); CARBON DIOXIDE LEVEL 21 MMOL/L (20-31); CHLORIDE LEVEL 105 MMOL/L (98-107); CK-MB VALUE MASS 1.3 NG/ML (<3.6); CREATININE FOR GFR 0.87 MG/DL (0.70-1.30); GLOMERULAR FILTRATION RATE > 60.0 (>60); GLUCOSE, FASTING 324 MG/DL (60-100); PHOSPHORUS LEVEL 4.7 MG/DL (2.5-4.9); POTASSIUM SERUM 5.3 MMOL/L (3.5-5.1); SODIUM LEVEL 137 MMOL/L (136-145); TOTAL PROTEIN 6.9 G/DL (5.7-8.2)
[2024-04-12 03:00] LABS: CPK CREATINE PHOSPHOKINASE 876 U/L (46-171); MB/CK RELATIVE INDEX 0.14 (< OR =4)
[2024-04-12 03:30] VITALS: BP 119/68; TEMP 97.9; O2SAT 95
[2024-04-12 03:42] LABS: VALPROIC ACID (DEPAKOTE) 70.7 UG/ML (50.0-100.0)
[2024-04-12 03:55] LABS: AMPHETAMINES LEVEL URINE NEGATIVE (NEGATIVE); BARBITURATES URINE NEGATIVE (NEGATIVE)
[2024-04-12 03:56] LABS: BENZODIAZEPINES URINE NEGATIVE (NEGATIVE); CANNABINOIDS URINE NEGATIVE (NEGATIVE); COCAINE METABOLITE URINE NEGATIVE (NEGATIVE); METHADONE URINE NEGATIVE (NEGATIVE); OPIATES URINE NEGATIVE (NEGATIVE); PHENCYCLIDINE URINE NEGATIVE (NEGATIVE)
== END 2024-04-12 04:27 | disposition home or self-care (01) ==
LOC: EDBD 01:56 → M ED 01:56
DX: G40.89 Other seizures (principal); E11.9 Type 2 diabetes mellitus without complications; Z91.199 Patient's noncompliance with other medical treatment and regimen due to unspecified reason; Z79.84 Long term (current) use of oral hypoglycemic drugs; Z79.899 Other long term (current) drug therapy

== ENCOUNTER 2024-04-20 02:08 | Emergency (ER) | payer MEDICARE, MEDICAID ==
[~2024-04-20] VITALS: Ht 180.3 cm; Wt 98.7 kg
[2024-04-20] MEDS ORDERED: JARD1TAB3 (02:16)
[2024-04-20 02:38] LABS: IONIZED CALCIUM 4.6 MG/DL (4.5-5.3)
[2024-04-20 02:40] LABS: BASO # 0.1 10^3/uL (0.0-0.2); BASO % 0.6 % (0.0-1.0); EOS # 0.1 10^3/uL (0.0-0.5); EOS % 1.3 % (0.0-3.0); HEMATOCRIT 43.1 % (42.0-52.0); HEMOGLOBIN 14.7 g/dl (13.5-17.5); LYMPH # 4.6 10^3/uL (1.5-5.0); LYMPH % 44.6 % (24.0-44.0); MEAN CORPUSCULAR HEMOGLOBIN 30.6 pg (27.0-33.0); MEAN CORPUSCULAR HGB CONC 34.1 g/dl (32.0-36.5); MEAN CORPUSCULAR VOLUME 89.6 fl (80.0-96.0); MONO # 0.8 10^3/uL (0.0-0.8); MONO % 7.6 % (2.0-8.0); NEUTROPHILS # 4.7 10^3/uL (1.5-8.5); NEUTROPHILS % 44.9 % (36.0-66.0); PLATELET COUNT, AUTOMATED 326 10^3/uL (150-450); RED BLOOD COUNT 4.81 10^6/uL (4.30-6.10); WHITE BLOOD COUNT 10.4 10^3/uL (4.0-10.0)
[2024-04-20 03:05] LABS: AMPHETAMINES LEVEL URINE NEGATIVE (NEGATIVE); BARBITURATES URINE NEGATIVE (NEGATIVE); BENZODIAZEPINES URINE NEGATIVE (NEGATIVE); CANNABINOIDS URINE NEGATIVE (NEGATIVE); COCAINE METABOLITE URINE NEGATIVE (NEGATIVE); METHADONE URINE NEGATIVE (NEGATIVE); OPIATES URINE NEGATIVE (NEGATIVE); PHENCYCLIDINE URINE NEGATIVE (NEGATIVE)
[2024-04-20 03:08] LABS: ALBUMIN 3.4 G/DL (3.2-5.2); ALKALINE PHOSPHATASE 90 U/L (40-129); ALT/SGPT 59 U/L (7.0-40); AST/SGOT 33 U/L (<34); BILIRUBIN,DIRECT < 0.1 MG/DL (<0.4); BILIRUBIN,TOTAL 0.3 MG/DL (0.3-1.2); BLOOD UREA NITROGEN 13 MG/DL (9-23); CALCIUM LEVEL 9.8 MG/DL (8.5-10.1); CARBON DIOXIDE LEVEL 23 MMOL/L (20-31); CHLORIDE LEVEL 102 MMOL/L (98-107); GLOMERULAR FILTRATION RATE > 60.0 (>60); GLUCOSE, FASTING 258 MG/DL (60-100); PHOSPHORUS LEVEL 3.4 MG/DL (2.5-4.9); POTASSIUM SERUM 4.1 MMOL/L (3.5-5.1); SODIUM LEVEL 137 MMOL/L (136-145); TOTAL PROTEIN 6.9 G/DL (5.7-8.2)
[2024-04-20 03:21] LABS: VALPROIC ACID (DEPAKOTE) 45.4 UG/ML (50.0-100.0)
[2024-04-20 04:50] LABS: BASO # 0.1 10^3/uL (0.0-0.2); BASO % 0.3 % (0.0-1.0); EOS % 0.2 % (0.0-3.0); HEMATOCRIT 42.2 % (42.0-52.0); HEMOGLOBIN 14.3 g/dl (13.5-17.5); LYMPH # 1.9 10^3/uL (1.5-5.0); LYMPH % 12.6 % (24.0-44.0); MEAN CORPUSCULAR HEMOGLOBIN 30.1 pg (27.0-33.0); MEAN CORPUSCULAR HGB CONC 33.9 g/dl (32.0-36.5); MEAN CORPUSCULAR VOLUME 88.8 fl (80.0-96.0); MONO % 6.5 % (2.0-8.0); NEUTROPHILS # 11.7 10^3/uL (1.5-8.5); NEUTROPHILS % 79.6 % (36.0-66.0); PLATELET COUNT, AUTOMATED 278 10^3/uL (150-450); RED BLOOD COUNT 4.75 10^6/uL (4.30-6.10); WHITE BLOOD COUNT 14.7 10^3/uL (4.0-10.0)
[2024-04-20 05:30] VITALS: BP 116/64
[2024-04-20 05:31] VITALS: TEMP 98.8; O2SAT 97
== END 2024-04-20 05:39 | disposition home or self-care (01) ==
LOC: M ED 02:08 → EDBD 02:08 → M ED 05:39
DX: G40.909 Epilepsy, unspecified, not intractable, without status epilepticus (principal); Z79.899 Other long term (current) drug therapy

== ENCOUNTER → 2024-04-21 | Outpatient (REF) | payer MEDICARE, MEDICAID ==
[~2024-04-21] MED LIST changes: +JARD1TAB3
[2024-04-21 13:52] LABS: ALBUMIN 3.3 G/DL (3.2-5.2); ALKALINE PHOSPHATASE 83 U/L (40-129); ALT/SGPT 56 U/L (7.0-40); AST/SGOT 37 U/L (<34); BILIRUBIN,TOTAL 0.8 MG/DL (0.3-1.2); BLOOD UREA NITROGEN 10 MG/DL (9-23); CALCIUM LEVEL 9.7 MG/DL (8.5-10.1); CARBON DIOXIDE LEVEL 27 MMOL/L (20-31); CHLORIDE LEVEL 102 MMOL/L (98-107); CHOLESTEROL LEVEL 226 MG/DL (<200); CHOLESTEROL RISK RATIO 5.82 (<5); CREATININE FOR GFR 0.92 MG/DL (0.70-1.30); GLOMERULAR FILTRATION RATE > 60.0 (>60); GLUCOSE, FASTING 203 MG/DL (60-100); HDL CHOLESTEROL 38.8 MG/DL (>40); LDL CHOLESTEROL 130.6 MG/DL (<100); NON-HDL-C 187.2 MG/DL; POTASSIUM SERUM 3.8 MMOL/L (3.5-5.1); SODIUM LEVEL 140 MMOL/L (136-145); THYROID STIMULATING HORMONE 1.527 uIU/ML (0.55-4.78); TOTAL PROTEIN 6.8 G/DL (5.7-8.2); TRIGLYCERIDES LEVEL 283 MG/DL (<150)
[2024-04-21 14:04] LABS: HEMOGLOBIN A1c 7.7 % (4.0-6.0)
== END ==
LOC: M LAB REF 13:00
PROVIDERS: ATTEND Family Medicine Addiction Medicine
DX: E11.69 Type 2 diabetes mellitus with other specified complication (principal)

== ENCOUNTER 2024-05-26 09:38 | Emergency (ER) | payer MEDICARE, MEDICAID ==
[~2024-05-26] VITALS: Ht 180.3 cm; Wt 90.9 kg
[2024-05-26] MEDS ORDERED: METF-415 (10:51)
[2024-05-26] MEDS ORDERED: LAMO100T3 (10:51)
[2024-05-26] MEDS ORDERED: ROSU10TA61 (10:51)
[2024-05-26 12:45] VITALS: BP 136/84; TEMP 96.7; O2SAT 97
== END 2024-05-26 13:02 | disposition home or self-care (01) ==
LOC: EDBD 09:38 → M ED 09:38
DX: G40.909 Epilepsy, unspecified, not intractable, without status epilepticus (principal); Z79.899 Other long term (current) drug therapy

== ENCOUNTER 2024-08-30 22:52 | Emergency (ER) | payer MEDICARE, MEDICAID ==
[~2024-08-30] VITALS: Ht 180.3 cm; Wt 103.3 kg
[~2024-08-30 22:52] MED LIST changes: +LAMO100T3; +METF-415; +ROSU10TA61
[2024-08-30 23:16] LABS: BASO # 0.1 10^3/uL (0.0-0.2); BASO % 0.8 % (0.0-1.0); EOS # 0.1 10^3/uL (0.0-0.5); EOS % 1.1 % (0.0-3.0); HEMOGLOBIN 12.1 g/dl (13.5-17.5); LYMPH # 3.4 10^3/uL (1.5-5.0); LYMPH % 40.5 % (24.0-44.0); MEAN CORPUSCULAR HEMOGLOBIN 26.2 pg (27.0-33.0); MEAN CORPUSCULAR HGB CONC 31.8 g/dl (32.0-36.5); MEAN CORPUSCULAR VOLUME 82.4 fl (80.0-96.0); MONO # 0.9 10^3/uL (0.0-0.8); MONO % 10.6 % (2.0-8.0); NEUTROPHILS # 3.7 10^3/uL (1.5-8.5); NEUTROPHILS % 44.3 % (36.0-66.0); PLATELET COUNT, AUTOMATED 372 10^3/uL (150-450); RED BLOOD COUNT 4.61 10^6/uL (4.30-6.10); WHITE BLOOD COUNT 8.4 10^3/uL (4.0-10.0)
[2024-08-30] MEDS: NS 0.9% IV ONE (23:20)
[2024-08-30] MEDS: [UNRECOGNIZED DRUG - OTHER] IV ONE (23:20)
[2024-08-30 23:22] LABS: IONIZED CALCIUM 4.6 MG/DL (4.5-5.3)
[2024-08-30 23:39] LABS: VALPROIC ACID (DEPAKOTE) < 3.0 UG/ML (50.0-100.0)
[2024-08-30 23:49] LABS: ALBUMIN 3.7 G/DL (3.2-5.2); ALKALINE PHOSPHATASE 113 U/L (40-129); ALT/SGPT 48 U/L (7.0-40); AST/SGOT 25 U/L (<34); BILIRUBIN,DIRECT < 0.1 MG/DL (<0.4); BILIRUBIN,TOTAL 0.2 MG/DL (0.3-1.2); BLOOD UREA NITROGEN 11 MG/DL (9-23); CARBON DIOXIDE LEVEL 24 MMOL/L (20-31); CHLORIDE LEVEL 100 MMOL/L (98-107); CREATININE FOR GFR 0.88 MG/DL (0.70-1.30); GLOMERULAR FILTRATION RATE > 90.0 (>60); GLUCOSE, FASTING 437 MG/DL (60-100); PHOSPHORUS LEVEL 4.2 MG/DL (2.5-4.9); POTASSIUM SERUM 4.7 MMOL/L (3.5-5.1); SODIUM LEVEL 136 MMOL/L (136-145); TOTAL PROTEIN 7.1 G/DL (5.7-8.2)
[2024-08-31] MEDS ORDERED: LORazepam 2 MG/ML 1ML VIAL As Ordered ONE (02:10)
[2024-08-31] MEDS: LORazepam 2 MG/ML 1ML VIAL IV STA (02:12)
[2024-08-31] MEDS: levETIRAcetam INJection 1,500 MG in IV 1 EA IV ONE (02:24)
[2024-08-31] MEDS: HumuLIN R (REGULAR) INSULIN (NovoLIN R) **100U/ML** PER UNIT SC ONE (02:56)
[2024-08-31] MEDS ORDERED: KEPP10002 PO (05:41)
[2024-08-31 05:45] VITALS: BP 127/90; TEMP 97.7; O2SAT 98
== END 2024-08-31 06:00 | disposition home or self-care (01) ==
LOC: M ED 22:52
DX: G40.909 Epilepsy, unspecified, not intractable, without status epilepticus (principal); Z79.899 Other long term (current) drug therapy
CPT/HCPCS: 80047; 80048; 80076; 80164; 82140; 82330; 83605; 83735; 84100; 85025; 93041; 94760; 96361; 96374; 96375; 99285; J1815; J1953; J2060

== ENCOUNTER 2024-09-12 11:09 | Emergency (ER) | payer MEDICARE, MEDICAID ==
[~2024-09-12] VITALS: Ht 180.3 cm; Wt 98.3 kg
[~2024-09-12 11:09] MED LIST changes: +KEPP10002 PO
[2024-09-12 11:32] LABS: IONIZED CALCIUM 4.6 MG/DL (4.5-5.3)
[2024-09-12 11:39] LABS: BASO # 0.1 10^3/uL (0.0-0.2); BASO % 0.9 % (0.0-1.0); EOS # 0.1 10^3/uL (0.0-0.5); EOS % 1.6 % (0.0-3.0); HEMATOCRIT 39.7 % (42.0-52.0); HEMOGLOBIN 12.4 g/dl (13.5-17.5); LYMPH # 3.6 10^3/uL (1.5-5.0); MEAN CORPUSCULAR HEMOGLOBIN 25.5 pg (27.0-33.0); MEAN CORPUSCULAR HGB CONC 31.2 g/dl (32.0-36.5); MEAN CORPUSCULAR VOLUME 81.7 fl (80.0-96.0); MONO # 0.5 10^3/uL (0.0-0.8); MONO % 6.8 % (2.0-8.0); NEUTROPHILS # 3.1 10^3/uL (1.5-8.5); NEUTROPHILS % 41.8 % (36.0-66.0); PLATELET COUNT, AUTOMATED 363 10^3/uL (150-450); RED BLOOD COUNT 4.86 10^6/uL (4.30-6.10); WHITE BLOOD COUNT 7.5 10^3/uL (4.0-10.0)
[2024-09-12 12:06] LABS: ALBUMIN 3.8 G/DL (3.2-5.2); ALKALINE PHOSPHATASE 114 U/L (40-129); ALT/SGPT 47 U/L (7.0-40); AST/SGOT 23 U/L (<34); BILIRUBIN,DIRECT < 0.1 MG/DL (<0.4); BILIRUBIN,TOTAL 0.4 MG/DL (0.3-1.2); BLOOD UREA NITROGEN 13 MG/DL (9-23); CALCIUM LEVEL 9.1 MG/DL (8.5-10.1); CARBON DIOXIDE LEVEL 22 MMOL/L (20-31); CHLORIDE LEVEL 103 MMOL/L (98-107); GLOMERULAR FILTRATION RATE > 90.0 (>60); GLUCOSE, FASTING 320 MG/DL (60-100); MAGNESIUM LEVEL 1.9 MG/DL (1.8-2.4); PHOSPHORUS LEVEL 3.5 MG/DL (2.5-4.9); POTASSIUM SERUM 4.7 MMOL/L (3.5-5.1); SODIUM LEVEL 138 MMOL/L (136-145)
[2024-09-12] MEDS: levETIRAcetam INJection 1,500 MG in IV 1 EA IV ONE (12:29)
[2024-09-12 12:47] VITALS: BP 122/90; TEMP 97.7; O2SAT 98
== END 2024-09-12 12:56 | disposition home or self-care (01) ==
LOC: EDBD 11:09 → M ED 11:09
DX: G40.909 Epilepsy, unspecified, not intractable, without status epilepticus (principal); Z91.199 Patient's noncompliance with other medical treatment and regimen due to unspecified reason; E11.9 Type 2 diabetes mellitus without complications; Z79.899 Other long term (current) drug therapy
CPT/HCPCS: 80047; 80048; 80076; 82140; 82330; 83605; 83735; 84100; 85025; 93041; 94760; 96365; 99285; J1953

== ENCOUNTER 2024-09-20 19:59 | Emergency (ER) | payer MEDICARE, MEDICAID ==
[~2024-09-20] VITALS: Ht 180.3 cm; Wt 99.6 kg
[2024-09-20 20:18] VITALS: TEMP 97.5
[2024-09-20] MEDS: lamoTRIgine 100MG TAB PO ONE (21:24)
[2024-09-20] MEDS: levETIRAcetam INJection 1,000 MG in IV 1 EA IV ONE (21:26)
[2024-09-20 21:39] LABS: VENOUS BASE EXCESS -1.9 (-2.0-2.0); VENOUS HCO3 24.4 MMOL/L (23.0-27.0); VENOUS O2 SATURATION 94.4 % (60.0-80.0); VENOUS PARTIAL PRESSURE CO2 47.7 mmHg (38.0-50.0); VENOUS PARTIAL PRESSURE O2 81.6 mmHg (30.0-50.0); VENOUS PH 7.326 UNITS (7.330-7.430); VENOUS STANDARD HCO3 22.8 MMOL/L; VENOUS TOTAL CO2 25.8 MMOL/L (24.0-28.0)
[2024-09-20 21:40] LABS: IONIZED CALCIUM 4.8 MG/DL (4.5-5.3)
[2024-09-20 21:43] LABS: BASO % 0.4 % (0.0-1.0); EOS % 0.5 % (0.0-3.0); HEMATOCRIT 36.8 % (42.0-52.0); HEMOGLOBIN 11.8 g/dl (13.5-17.5); LYMPH # 1.4 10^3/uL (1.5-5.0); LYMPH % 16.9 % (24.0-44.0); MEAN CORPUSCULAR HEMOGLOBIN 25.8 pg (27.0-33.0); MEAN CORPUSCULAR HGB CONC 32.1 g/dl (32.0-36.5); MEAN CORPUSCULAR VOLUME 80.5 fl (80.0-96.0); MONO # 0.5 10^3/uL (0.0-0.8); MONO % 6.6 % (2.0-8.0); NEUTROPHILS # 6.2 10^3/uL (1.5-8.5); NEUTROPHILS % 75.2 % (36.0-66.0); PLATELET COUNT, AUTOMATED 307 10^3/uL (150-450); RED BLOOD COUNT 4.57 10^6/uL (4.30-6.10); WHITE BLOOD COUNT 8.2 10^3/uL (4.0-10.0)
[2024-09-20 22:01] LABS: VALPROIC ACID (DEPAKOTE) < 3.0 UG/ML (50.0-100.0)
[2024-09-20 22:02] LABS: ETHYL ALCOHOL (ETHANOL) < 0.003 % (0.000-0.010)
[2024-09-20 22:04] LABS: ALBUMIN 3.5 G/DL (3.2-5.2); ALKALINE PHOSPHATASE 102 U/L (40-129); ALT/SGPT 45 U/L (7.0-40); AST/SGOT 18 U/L (<34); BILIRUBIN,DIRECT < 0.1 MG/DL (<0.4); BILIRUBIN,TOTAL 0.3 MG/DL (0.3-1.2); BLOOD UREA NITROGEN 11 MG/DL (9-23); CALCIUM LEVEL 8.7 MG/DL (8.5-10.1); CARBON DIOXIDE LEVEL 25 MMOL/L (20-31); CHLORIDE LEVEL 105 MMOL/L (98-107); CREATININE FOR GFR 0.83 MG/DL (0.70-1.30); GLOMERULAR FILTRATION RATE > 90.0 (>60); GLUCOSE, FASTING 284 MG/DL (60-100); MAGNESIUM LEVEL 1.6 MG/DL (1.8-2.4); PHOSPHORUS LEVEL 2.7 MG/DL (2.5-4.9); POTASSIUM SERUM 4.2 MMOL/L (3.5-5.1); SODIUM LEVEL 140 MMOL/L (136-145); TOTAL PROTEIN 6.4 G/DL (5.7-8.2)
[2024-09-20] MEDS: MAG SULF 1GM/100ML (MAG RUN) 1 GM in IV 1 EA IV ONE (22:53)
[2024-09-20 23:29] VITALS: O2SAT 97
[2024-09-20 23:30] VITALS: BP 128/60
[2024-09-24 01:02] LABS: LAMOTRIGINE (LAMICTAL) < 0.5 mcg/mL (2.5-15.0)
[2024-09-24 23:32] LABS: LEVETIRACETAM (KEPPRA) 71.4 mcg/mL (6.0-46.0)
== END 2024-09-21 00:11 | disposition home or self-care (01) ==
LOC: M ED 19:59 → EDBD 19:59 → M ED 09-21 00:11
DX: R56.9 Unspecified convulsions (principal); Z79.899 Other long term (current) drug therapy
CPT/HCPCS: 71045; 80048; 80076; 80164; 80175; 80177; 82077; 82140; 82330; 82803; 83605; 83735; 84100; 85025; 87486; 87581; 87633; 87798; 93041; 94760; 96365; 96367; 99285; J1953; J3475

== ENCOUNTER 2024-09-28 02:55 | Emergency (ER) | payer MEDICARE, MEDICAID ==
[~2024-09-28] VITALS: Ht 180.3 cm; Wt 98.1 kg
[2024-09-28 03:21] LABS: VENOUS BASE EXCESS -6.3 (-2.0-2.0); VENOUS O2 SATURATION 96.4 % (60.0-80.0); VENOUS PARTIAL PRESSURE CO2 37.2 mmHg (38.0-50.0); VENOUS PARTIAL PRESSURE O2 92.2 mmHg (30.0-50.0); VENOUS PH 7.326 UNITS (7.330-7.430); VENOUS STANDARD HCO3 19.3 MMOL/L; VENOUS TOTAL CO2 20.1 MMOL/L (24.0-28.0)
[2024-09-28 03:22] LABS: IONIZED CALCIUM 4.7 MG/DL (4.5-5.3)
[2024-09-28 03:26] LABS: BASO # 0.1 10^3/uL (0.0-0.2); BASO % 0.6 % (0.0-1.0); EOS # 0.1 10^3/uL (0.0-0.5); EOS % 1.3 % (0.0-3.0); HEMATOCRIT 38.7 % (42.0-52.0); HEMOGLOBIN 12.4 g/dl (13.5-17.5); LYMPH % 44.5 % (24.0-44.0); MEAN CORPUSCULAR HEMOGLOBIN 26.1 pg (27.0-33.0); MEAN CORPUSCULAR VOLUME 81.3 fl (80.0-96.0); MONO # 0.9 10^3/uL (0.0-0.8); MONO % 9.8 % (2.0-8.0); NEUTROPHILS # 3.8 10^3/uL (1.5-8.5); NEUTROPHILS % 42.5 % (36.0-66.0); PLATELET COUNT, AUTOMATED 409 10^3/uL (150-450); RED BLOOD COUNT 4.76 10^6/uL (4.30-6.10)
[2024-09-28 04:06] LABS: ALKALINE PHOSPHATASE 114 U/L (40-129); ALT/SGPT 47 U/L (7.0-40); AST/SGOT 21 U/L (<34); BILIRUBIN,DIRECT < 0.1 MG/DL (<0.4); BILIRUBIN,TOTAL 0.3 MG/DL (0.3-1.2); BLOOD UREA NITROGEN 9 MG/DL (9-23); CALCIUM LEVEL 9.7 MG/DL (8.5-10.1); CARBON DIOXIDE LEVEL 20 MMOL/L (20-31); CHLORIDE LEVEL 100 MMOL/L (98-107); CREATININE FOR GFR 0.87 MG/DL (0.70-1.30); GLOMERULAR FILTRATION RATE > 90.0 (>60); GLUCOSE, FASTING 217 MG/DL (60-100); MAGNESIUM LEVEL 1.6 MG/DL (1.8-2.4); PHOSPHORUS LEVEL 4.2 MG/DL (2.5-4.9); POTASSIUM SERUM 4.6 MMOL/L (3.5-5.1); SODIUM LEVEL 138 MMOL/L (136-145); TOTAL PROTEIN 7.1 G/DL (5.7-8.2)
[2024-09-28 04:09] LABS: VALPROIC ACID (DEPAKOTE) < 3.0 UG/ML (50.0-100.0)
[2024-09-28 05:15] VITALS: BP 136/82; TEMP 98; O2SAT 98
== END 2024-09-28 05:26 | disposition home or self-care (01) ==
LOC: M ED 02:55 → EDBD 02:55 → M ED 05:26
DX: G40.89 Other seizures (principal); Z79.899 Other long term (current) drug therapy

== ENCOUNTER 2024-11-24 09:13 | Emergency (ER) | payer MEDICARE, MEDICAID ==
[~2024-11-24] VITALS: Ht 180.3 cm; Wt 97.2 kg
[~2024-11-24 09:13] MED LIST changes: +DEPA250T PO; -DEPA250T2 PO; +DIVA-41 PO; -DIVA500T94 PO; -JARD1TAB3; +JARD1TAB3 PO; -LAMO100T3; +LAMO100T3 PO; -METF-415; +METF-415 PO; -ROSU10TA61; +ROSU10TA61 PO
[2024-11-24] MEDS: levETIRAcetam INJection 1,500 MG in IV 1 EA IV ONE ×2 (11:07→12:15)
[2024-11-24] MEDS: lamoTRIgine 100 MG TAB PO ONE (11:07)
[2024-11-24] MEDS ORDERED: HOME MED LIST COMPLETE! XX SCH (12:05)
[2024-11-24] MEDS: LORazepam 0.5 MG TAB PO ONE (12:41)
[2024-11-24 13:15] VITALS: BP 107/56; TEMP 96.9; O2SAT 99
[2024-11-27 04:02] LABS: LEVETIRACETAM (KEPPRA) < 2.0 mcg/mL (6.0-46.0)
[2024-11-27 11:28] LABS: LAMOTRIGINE (LAMICTAL) 0.8 mcg/mL (2.5-15.0)
== END 2024-11-24 13:15 | disposition home or self-care (01) ==
LOC: M ED 09:13 → EDBD 09:13 → M ED 13:15
DX: G40.919 Epilepsy, unspecified, intractable, without status epilepticus (principal); Z91.199 Patient's noncompliance with other medical treatment and regimen due to unspecified reason; E11.9 Type 2 diabetes mellitus without complications; Z79.84 Long term (current) use of oral hypoglycemic drugs; Z79.899 Other long term (current) drug therapy
CPT/HCPCS: 80175; 80177; 96365; 96366; 99284; J1953

== ENCOUNTER 2024-12-22 10:29 | Emergency (ER) | payer MEDICARE, MEDICAID ==
[~2024-12-22] VITALS: Ht 180.3 cm; Wt 95.9 kg
[2024-12-22 10:40] VITALS: TEMP 98.8
[2024-12-22 11:07] LABS: BASO # 0.0 10^3/uL (0.0-0.2); BASO % 0.4 % (0.0-1.0); EOS # 0.1 10^3/uL (0.0-0.5); EOS % 0.9 % (0.0-3.0); LYMPH # 2.3 10^3/uL (1.5-5.0); LYMPH % 24.4 % (24.0-44.0); MONO # 0.8 10^3/uL (0.0-0.8); MONO % 9.0 % (2.0-8.0); NEUTROPHILS # 6.0 10^3/uL (1.5-8.5); NEUTROPHILS % 64.7 % (36.0-66.0); PLATELET COUNT, AUTOMATED 435 10^3/uL (150-450)
[2024-12-22 11:38] LABS: ALT/SGPT 61 U/L (7.0-40); AST/SGOT 35 U/L (<34); CALCIUM LEVEL 8.7 MG/DL (8.5-10.1); CARBON DIOXIDE LEVEL 19 MMOL/L (20-31); CHLORIDE LEVEL 103 MMOL/L (98-107); CREATININE FOR GFR 0.74 MG/DL (0.70-1.30); GLOMERULAR FILTRATION RATE > 90.0 (>60); MAGNESIUM LEVEL 1.6 MG/DL (1.8-2.4); PHOSPHORUS LEVEL 3.0 MG/DL (2.5-4.9); POTASSIUM SERUM 4.5 MMOL/L (3.5-5.1); SODIUM LEVEL 141 MMOL/L (136-145)
[2024-12-22] MEDS ORDERED: levETIRAcetam INJection 2,000 MG in D5W 100 ML IV ONE (11:55)
[2024-12-22] MEDS: LEVETIRACETAM IV SCH (12:37)
[2024-12-22] MEDS: DILUENT IV SCH (12:37)
[2024-12-22] MEDS: NS (Normal Saline) 0.9% 1,000 ML IV ONE (12:37)
[2024-12-22 12:44] LABS: ABG BASE EXCESS -5.1 (-2.0-2.0); ABG HCO3 19.4 MMOL/L (22.0-26.0); ABG O2 SATURATION 97.7 % (95.0-99.0); ABG PARTIAL PRESSURE CO2 34.3 mmHg (35.0-45.0); ABG PARTIAL PRESSURE O2 100.9 mmHg (75.0-100.0); ABG STANDARD HCO3 20.3 MMOL/L. (22.0-26.0); ABG TOTAL CO2 20.4 MMOL/L (22.0-29.0); ABG pH (ARTERIAL) 7.370 UNITS (7.350-7.450)
[2024-12-22] MEDS ORDERED: HOME MED LIST COMPLETE! XX SCH (13:35)
[2024-12-22] MEDS: MAG SULF 1GM/100ML (MAG RUN) 1 GM in IV 1 EA IV ONE (14:55)
[2024-12-22] MEDS: lamoTRIgine 100 MG TAB PO ONE (15:22)
[2024-12-22] MEDS ORDERED: MAGN400T2 PO (15:28)
[2024-12-22] MEDS ORDERED: LAMO100T3 PO (15:28)
[2024-12-22] MEDS ORDERED: LEVE10003 PO (15:28)
[2024-12-22 16:00] VITALS: BP 109/77; O2SAT 98
== END 2024-12-22 16:16 | disposition home or self-care (01) ==
LOC: EDBD 10:29 → M ED 10:29
DX: G40.909 Epilepsy, unspecified, not intractable, without status epilepticus (principal); E11.9 Type 2 diabetes mellitus without complications; Z79.899 Other long term (current) drug therapy
CPT/HCPCS: 36600; 80048; 80076; 82140; 82330; 82803; 83605; 83735; 84100; 85025; 93041; 94760; 96365; 96366; 96368; 99285; J1953; J3475

== ENCOUNTER 2025-01-09 22:45 | Emergency (ER) | payer MEDICARE, MEDICAID ==
[~2025-01-09] VITALS: Ht 180.3 cm; Wt 90.0 kg
[2025-01-10 00:15] LABS: BASO # 0.1 10^3/uL (0.0-0.2); BASO % 0.4 % (0.0-1.0); EOS # 0.1 10^3/uL (0.0-0.5); EOS % 0.4 % (0.0-3.0); LYMPH # 2.5 10^3/uL (1.5-5.0); LYMPH % 17.8 % (24.0-44.0); MONO # 0.8 10^3/uL (0.0-0.8); MONO % 5.6 % (2.0-8.0); NEUTROPHILS # 10.3 10^3/uL (1.5-8.5); NEUTROPHILS % 74.9 % (36.0-66.0); PLATELET COUNT, AUTOMATED 402 10^3/uL (150-450)
[2025-01-10 00:25] LABS: ALT/SGPT 78 U/L (7.0-40); AST/SGOT 38 U/L (<34); CALCIUM LEVEL 9.9 MG/DL (8.5-10.1); CARBON DIOXIDE LEVEL 21 MMOL/L (20-31); CHLORIDE LEVEL 104 MMOL/L (98-107); CREATININE FOR GFR 0.74 MG/DL (0.70-1.30); GLOMERULAR FILTRATION RATE > 90.0 (>60); MAGNESIUM LEVEL 1.7 MG/DL (1.8-2.4); PHOSPHORUS LEVEL 3.3 MG/DL (2.5-4.9); POTASSIUM SERUM 4.4 MMOL/L (3.5-5.1); SODIUM LEVEL 140 MMOL/L (136-145)
[2025-01-10] MEDS: NS (Normal Saline) 0.9% 1,000 ML IV ONE ×2 (01:01→04:49)
[2025-01-10] MEDS: levETIRAcetam INJection 1,500 MG in IV 1 EA IV ONE (01:03)
[2025-01-10] MEDS: lamoTRIgine 100 MG TAB PO ONE (02:44)
[2025-01-10] MEDS: ROSUVASTATIN 10 MG TAB PO STA (02:44)
[2025-01-10] MEDS ORDERED: LAMO100T3 PO (05:51)
[2025-01-10] MEDS ORDERED: KEPP10002 PO (05:51)
[2025-01-10 06:00] VITALS: BP 130/91; TEMP 98; O2SAT 98
[2025-01-12 19:33] LABS: LEVETIRACETAM (KEPPRA) < 2.0 mcg/mL (6.0-46.0)
[2025-01-13 18:38] LABS: LAMOTRIGINE (LAMICTAL) < 0.5 mcg/mL (2.5-15.0)
== END 2025-01-10 06:16 | disposition home or self-care (01) ==
LOC: M ED 22:45
DX: G40.909 Epilepsy, unspecified, not intractable, without status epilepticus (principal); E11.9 Type 2 diabetes mellitus without complications; E78.5 Hyperlipidemia, unspecified; Z91.199 Patient's noncompliance with other medical treatment and regimen due to unspecified reason; Z79.84 Long term (current) use of oral hypoglycemic drugs; Z79.899 Other long term (current) drug therapy
CPT/HCPCS: 71045; 80048; 80076; 80175; 80177; 82077; 82140; 82330; 83605; 83735; 84100; 85025; 87486; 87581; 87633; 87798; 93005; 93041; 94760; 96365; 96366; 96375; 99285; J1953; J2060

== ENCOUNTER 2025-01-16 19:34 | Emergency (ER) | payer MEDICARE, MEDICAID ==
[~2025-01-16] VITALS: Ht 180.3 cm; Wt 90.9 kg
[2025-01-16 20:29] LABS: VENOUS BASE EXCESS -2.8 (-2.0-2.0); VENOUS HCO3 22.2 MMOL/L (23.0-27.0); VENOUS O2 SATURATION 98.2 % (60.0-80.0); VENOUS PARTIAL PRESSURE CO2 39.4 mmHg (38.0-50.0); VENOUS PARTIAL PRESSURE O2 126.4 mmHg (30.0-50.0); VENOUS PH 7.368 UNITS (7.330-7.430); VENOUS STANDARD HCO3 22.1 MMOL/L; VENOUS TOTAL CO2 23.4 MMOL/L (24.0-28.0)
[2025-01-16 20:39] LABS: BASO # 0.1 10^3/uL (0.0-0.2); BASO % 0.6 % (0.0-1.0); EOS # 0.1 10^3/uL (0.0-0.5); EOS % 0.6 % (0.0-3.0); LYMPH # 1.9 10^3/uL (1.5-5.0); LYMPH % 17.6 % (24.0-44.0); MONO # 0.7 10^3/uL (0.0-0.8); MONO % 6.6 % (2.0-8.0); NEUTROPHILS # 8.0 10^3/uL (1.5-8.5); NEUTROPHILS % 73.8 % (36.0-66.0); PLATELET COUNT, AUTOMATED 458 10^3/uL (150-450)
[2025-01-16] MEDS: NS (Normal Saline) 0.9% 1,000 ML IV ONE (20:53)
[2025-01-16] MEDS: levETIRAcetam INJection 1,500 MG in IV 1 EA IV ONE (20:53)
[2025-01-16 20:56] LABS: AMPHETAMINES LEVEL URINE NEGATIVE (NEGATIVE)
[2025-01-16 20:57] LABS: BENZODIAZEPINES URINE NEGATIVE (NEGATIVE)
[2025-01-16 20:58] LABS: BARBITURATES URINE NEGATIVE (NEGATIVE); CANNABINOIDS URINE NEGATIVE (NEGATIVE); OPIATES URINE NEGATIVE (NEGATIVE); PHENCYCLIDINE URINE NEGATIVE (NEGATIVE)
[2025-01-16 21:02] LABS: COCAINE METABOLITE URINE NEGATIVE (NEGATIVE); METHADONE URINE NEGATIVE (NEGATIVE)
[2025-01-16 21:04] LABS: ETHYL ALCOHOL (ETHANOL) < 0.003 % (0.000-0.010)
[2025-01-16 21:06] LABS: ALT/SGPT 64 U/L (7.0-40); AST/SGOT 37 U/L (<34); CALCIUM LEVEL 9.4 MG/DL (8.5-10.1); CARBON DIOXIDE LEVEL 22 MMOL/L (20-31); CHLORIDE LEVEL 105 MMOL/L (98-107); CREATININE FOR GFR 0.79 MG/DL (0.70-1.30); GLOMERULAR FILTRATION RATE > 90.0 (>60); MAGNESIUM LEVEL 1.9 MG/DL (1.8-2.4); PHOSPHORUS LEVEL 2.9 MG/DL (2.5-4.9); POTASSIUM SERUM 4.8 MMOL/L (3.5-5.1); SODIUM LEVEL 140 MMOL/L (136-145)
[2025-01-17 00:08] VITALS: BP 129/92; TEMP 97.6; O2SAT 99
[2025-01-20 00:37] LABS: LAMOTRIGINE (LAMICTAL) 2.2 mcg/mL (2.5-15.0)
[2025-01-20 11:02] LABS: LEVETIRACETAM (KEPPRA) < 2.0 mcg/mL (6.0-46.0)
== END 2025-01-17 00:22 | disposition home or self-care (01) ==
LOC: M ED 19:34
DX: R56.9 Unspecified convulsions (principal); Z91.148 Patient's other noncompliance with medication regimen for other reason; E11.9 Type 2 diabetes mellitus without complications; E78.5 Hyperlipidemia, unspecified; Z79.84 Long term (current) use of oral hypoglycemic drugs; Z79.899 Other long term (current) drug therapy
CPT/HCPCS: 70450; 80048; 80076; 80175; 80177; 80307; 82077; 82140; 82330; 82803; 83605; 83735; 84100; 85025; 87486; 87581; 87633; 87798; 93005; 93041; 94760; 96365; 96366; 99285; J1953

== ENCOUNTER 2025-01-20 07:50 | Observation (INO) | payer MEDICARE, MEDICAID ==
[~2025-01-20] VITALS: Ht 180.3 cm; Wt 90.3 kg
[2025-01-20 08:28] LABS: BASO # 0.1 10^3/uL (0.0-0.2); BASO % 0.5 % (0.0-1.0); EOS # 0.0 10^3/uL (0.0-0.5); EOS % 0.4 % (0.0-3.0); LYMPH # 2.4 10^3/uL (1.5-5.0); LYMPH % 21.8 % (24.0-44.0); MONO # 0.7 10^3/uL (0.0-0.8); MONO % 6.3 % (2.0-8.0); NEUTROPHILS # 7.7 10^3/uL (1.5-8.5); NEUTROPHILS % 70.4 % (36.0-66.0); PLATELET COUNT, AUTOMATED 416 10^3/uL (150-450)
[2025-01-20 08:58] LABS: ALT/SGPT 57 U/L (7.0-40); AST/SGOT 35 U/L (<34); CALCIUM LEVEL 9.4 MG/DL (8.5-10.1); CARBON DIOXIDE LEVEL 19 MMOL/L (20-31); CHLORIDE LEVEL 105 MMOL/L (98-107); CREATININE FOR GFR 0.85 MG/DL (0.70-1.30); GLOMERULAR FILTRATION RATE > 90.0 (>60); MAGNESIUM LEVEL 1.6 MG/DL (1.8-2.4); PHOSPHORUS LEVEL 3.4 MG/DL (2.5-4.9); POTASSIUM SERUM 4.6 MMOL/L (3.5-5.1); SODIUM LEVEL 141 MMOL/L (136-145)
[2025-01-20] MEDS ORDERED: LAMO100T80 PO (09:23)
[2025-01-20] MEDS ORDERED: KEPP10002 PO (09:23)
[2025-01-20] MEDS ORDERED: HOME MED LIST COMPLETE! XX SCH (09:25)
[2025-01-20] MEDS: levETIRAcetam INJection 1,500 MG in IV 1 EA IV ONE (10:33)
[2025-01-20] MEDS: MAG SULF 1GM/100ML (MAG RUN) 1 GM in IV 1 EA IV ONE ×2 (14:48→18:13)
[2025-01-20] MEDS ORDERED: ACETAMINOPHEN 325 MG TAB PO PRN (16:00)
[2025-01-20] MEDS ORDERED: GLUCAGON INJ 1 MG VIAL SC PRN (16:05)
[2025-01-20] MEDS ORDERED: DEXTROSE 50% 50 ML SYRINGE IV PRN (16:05)
[2025-01-20] MEDS ORDERED: GLUCOSE 4 GM CHEW PO PRN (16:05)
[2025-01-20] MEDS: NS (Normal Saline) 0.9% 1,000 ML IV SCH (17:00)
[2025-01-20 17:08] LABS: INR 1.11
[2025-01-20 17:22] LABS: CHOLESTEROL LEVEL 211.0 MG/DL (<200); CHOLESTEROL RISK RATIO 5.62 (<5); LDL CHOLESTEROL 141.3 MG/DL (<100); NON-HDL-C 173.5 MG/DL; TRIGLYCERIDES LEVEL 161.0 MG/DL (<150)
[2025-01-20] MEDS: INSULIN LISPRO (NovoLOG) PER UNIT SC SCH ×2 (17:30→20:28)
[2025-01-20 17:45] LABS: ESTIMATED AVERAGE GLUCOSE 192.0 MG/DL (60-110)
[2025-01-20] MEDS: ROSUVASTATIN 10 MG TAB PO SCH (20:20)
[2025-01-20] MEDS: lamoTRIgine 100 MG TAB PO SCH (20:21)
[2025-01-20] MEDS: MAGNESIUM OXIDE 400 MG TAB PO SCH (20:21)
[2025-01-20 20:47] LABS: KETONE, URINE AUTO RFX TRACE mg/dL (NEGATIVE); LEUKOCYTE ESTERASE UR AUTO RFX NEGATIVE (NEGATIVE); MUCUS, URINE RFX SMALL (NEGATIVE); NITRITE, URINE AUTO RFX NEGATIVE (NEGATIVE); RBC, URINE AUTO RFX 1 /HPF (0-3); SQUAM EPITHELIAL CELL UR AURFX 0 /HPF (0-6); WBC, URINE AUTO RFX 1 /HPF (0-3)
[2025-01-20 20:53] VITALS: BP 122/85; TEMP 97.9; O2SAT 97
[2025-01-21 04:29] VITALS: BP 95/63; TEMP 98.6; O2SAT 98
[2025-01-21 06:41] LABS: PLATELET COUNT, AUTOMATED 343 10^3/uL (150-450)
[2025-01-21 07:10] LABS: ALT/SGPT 49 U/L (7.0-40); AST/SGOT 32 U/L (<34); CALCIUM LEVEL 8.9 MG/DL (8.5-10.1); CARBON DIOXIDE LEVEL 27 MMOL/L (20-31); CHLORIDE LEVEL 107 MMOL/L (98-107); CREATININE FOR GFR 1.04 MG/DL (0.70-1.30); GLOMERULAR FILTRATION RATE > 90.0 (>60); POTASSIUM SERUM 4.4 MMOL/L (3.5-5.1); SODIUM LEVEL 144 MMOL/L (136-145)
[2025-01-21] MEDS: ENOXAPARIN 40 MG/0.4 ML SYRINGE (J1650 PER 10MG) SC SCH (09:00)
[2025-01-21 12:00] VITALS: BP 123/96; TEMP 97.9; O2SAT 98
[2025-01-21] MEDS ORDERED: KEPP10002 PO (17:30)
[2025-01-21] MEDS ORDERED: METF-415 PO (17:30)
[2025-01-21] MEDS ORDERED: LAMO100T80 PO (17:30)
[2025-01-21] MEDS ORDERED: ROSU10TA61 PO (17:30)
[2025-01-21] MEDS ORDERED: JARD1TAB3 PO (17:30)
[2025-01-24 04:28] LABS: LEVETIRACETAM (KEPPRA) < 2.0 mcg/mL (6.0-46.0)
[2025-01-25 13:32] LABS: LAMOTRIGINE (LAMICTAL) < 0.5 mcg/mL (2.5-15.0)
== END 2025-01-21 15:20 | disposition home or self-care (01) ==
LOC: M ED 07:50 → M ED INP 07:51 → M MSPAV 20:48
PROVIDERS: ADMIT Internal Medicine; ATTEND Internal Medicine
DX: G40.89 Other seizures (principal); Z91.148 Patient's other noncompliance with medication regimen for other reason; E87.29 Other acidosis; E83.42 Hypomagnesemia; E11.9 Type 2 diabetes mellitus without complications; Z79.899 Other long term (current) drug therapy; Z79.84 Long term (current) use of oral hypoglycemic drugs
CPT/HCPCS: 36415; 70450; 72125; 80048; 80053; 80061; 80076; 80175; 80177; 81001; 82140; 82330; 83036; 83605; 83735; 84100; 85025; 85027; 85610; 85730; 93005; 93041; 94760; 96361; 96365; 96372; 96375; 99285; G0378; J1650; J1953; J2060; J3475

== ENCOUNTER 2025-02-27 01:14 | Emergency (ER) | payer MEDICARE, MEDICAID ==
[~2025-02-27] VITALS: Ht 180.3 cm; Wt 92.2 kg
[~2025-02-27 01:14] MED LIST changes: +LAMO100T80 PO
[2025-02-27] MEDS ORDERED: MIDAZOLAM 5 MG/ML 1 ML VIAL IV PRN (01:35)
[2025-02-27] MEDS: NS (Normal Saline) 0.9% 1,000 ML IV ONE (01:35)
[2025-02-27 02:12] LABS: BASO # 0.1 10^3/uL (0.0-0.2); BASO % 0.8 % (0.0-1.0); EOS # 0.1 10^3/uL (0.0-0.5); EOS % 1.4 % (0.0-3.0); LYMPH # 2.2 10^3/uL (1.5-5.0); LYMPH % 30.0 % (24.0-44.0); MONO # 0.6 10^3/uL (0.0-0.8); MONO % 8.6 % (2.0-8.0); NEUTROPHILS # 4.1 10^3/uL (1.5-8.5); NEUTROPHILS % 56.6 % (36.0-66.0); PLATELET COUNT, AUTOMATED 356 10^3/uL (150-450)
[2025-02-27 02:32] LABS: ALT/SGPT 59 U/L (7.0-40); AST/SGOT 32 U/L (<34); CALCIUM LEVEL 8.5 MG/DL (8.5-10.1); CARBON DIOXIDE LEVEL 24 MMOL/L (20-31); CHLORIDE LEVEL 102 MMOL/L (98-107); CREATININE FOR GFR 0.73 MG/DL (0.70-1.30); GLOMERULAR FILTRATION RATE > 90.0 (>60); MAGNESIUM LEVEL 1.8 MG/DL (1.8-2.4); PHOSPHORUS LEVEL 2.8 MG/DL (2.5-4.9); POTASSIUM SERUM 4.6 MMOL/L (3.5-5.1); SODIUM LEVEL 136 MMOL/L (136-145)
[2025-02-27] MEDS: HumuLIN R (REGULAR) INSULIN (NovoLIN R) **100 U/ML** PER UNIT IV ONE (03:00)
[2025-02-27] MEDS ORDERED: LAMO100T80 PO (03:53)
[2025-02-27] MEDS ORDERED: METF-415 PO (03:53)
[2025-02-27 04:00] VITALS: BP 128/73; TEMP 98.9; O2SAT 97
[2025-02-28] MEDS ORDERED: LAMO100T80 PO (10:00)
[2025-03-02 05:33] LABS: LAMOTRIGINE (LAMICTAL) 1.5 mcg/mL (2.5-15.0)
[2025-03-02 10:41] LABS: LEVETIRACETAM (KEPPRA) 72.1 mcg/mL (6.0-46.0)
== END 2025-02-27 04:10 | disposition home or self-care (01) ==
LOC: EDBD 01:14 → M ED 01:14
DX: G40.909 Epilepsy, unspecified, not intractable, without status epilepticus (principal); R06.02 Shortness of breath; I10 Essential (primary) hypertension; Z79.899 Other long term (current) drug therapy; Z79.4 Long term (current) use of insulin

== ENCOUNTER 2025-02-27 18:13 | Observation (INO) | payer MEDICARE, MEDICAID ==
[~2025-02-27] VITALS: Ht 180.3 cm; Wt 89.5 kg
[~2025-02-27 18:13] MED LIST changes: -ROSU10TA61 PO; +ROSU10TA90 PO
[2025-02-27 19:05] LABS: BASO # 0.1 10^3/uL (0.0-0.2); BASO % 0.6 % (0.0-1.0); EOS # 0.1 10^3/uL (0.0-0.5); EOS % 0.6 % (0.0-3.0); LYMPH # 2.9 10^3/uL (1.5-5.0); LYMPH % 26.9 % (24.0-44.0); MONO # 0.7 10^3/uL (0.0-0.8); MONO % 6.4 % (2.0-8.0); NEUTROPHILS # 7.0 10^3/uL (1.5-8.5); NEUTROPHILS % 64.0 % (36.0-66.0); PLATELET COUNT, AUTOMATED 408 10^3/uL (150-450)
[2025-02-27 19:27] LABS: ALT/SGPT 60 U/L (7.0-40); AST/SGOT 40 U/L (<34); CALCIUM LEVEL 8.5 MG/DL (8.5-10.1); CARBON DIOXIDE LEVEL 22 MMOL/L (20-31); CHLORIDE LEVEL 106 MMOL/L (98-107); CREATININE FOR GFR 0.72 MG/DL (0.70-1.30); GLOMERULAR FILTRATION RATE > 90.0 (>60); MAGNESIUM LEVEL 1.9 MG/DL (1.8-2.4); POTASSIUM SERUM 4.6 MMOL/L (3.5-5.1); SODIUM LEVEL 141 MMOL/L (136-145)
[2025-02-27] MEDS: levETIRAcetam INJection 1,500 MG in IV 1 EA IV ONE (19:43)
[2025-02-27] MEDS: NS (Normal Saline) 0.9% 1,000 ML IV ONE (19:43)
[2025-02-27 19:56] LABS: KETONE, URINE AUTO RFX NEGATIVE (NEGATIVE); LEUKOCYTE ESTERASE UR AUTO RFX NEGATIVE (NEGATIVE); MUCUS, URINE RFX SMALL (NEGATIVE); NITRITE, URINE AUTO RFX NEGATIVE (NEGATIVE); RBC, URINE AUTO RFX 0 /HPF (0-3); SQUAM EPITHELIAL CELL UR AURFX 0 /HPF (0-6); WBC, URINE AUTO RFX 1 /HPF (0-3)
[2025-02-27 20:13] LABS: AMPHETAMINES LEVEL URINE NEGATIVE (NEGATIVE); BARBITURATES URINE NEGATIVE (NEGATIVE); BENZODIAZEPINES URINE NEGATIVE (NEGATIVE); CANNABINOIDS URINE NEGATIVE (NEGATIVE); COCAINE METABOLITE URINE NEGATIVE (NEGATIVE); METHADONE URINE NEGATIVE (NEGATIVE); OPIATES URINE NEGATIVE (NEGATIVE); PHENCYCLIDINE URINE NEGATIVE (NEGATIVE)
[2025-02-27] MEDS ORDERED: PILL CUTTER 1 EACH XX ONE (21:25)
[2025-02-27] MEDS: lamoTRIgine 100 MG TAB PO ONE (21:27)
[2025-02-27] MEDS ORDERED: HOME MED LIST COMPLETE! XX SCH (23:10)
[2025-02-27] MEDS ORDERED: PILL CUTTER 1 EACH XX PRN (23:50)
[2025-02-28 00:24] VITALS: BP 143/87; TEMP 98.1; O2SAT 99
[2025-02-28] MEDS ORDERED: GLUCAGON INJ 1 MG VIAL SC PRN (02:45)
[2025-02-28] MEDS ORDERED: DEXTROSE 50% 50 ML SYRINGE IV PRN (02:45)
[2025-02-28] MEDS ORDERED: GLUCOSE 4 GM CHEW PO PRN (02:45)
[2025-02-28 04:21] VITALS: BP 118/58; TEMP 97.4; O2SAT 99
[2025-02-28 05:47] LABS: IRON (FE) 45.0 UG/DL (65-175); PERCENT SATURATION 11.9 % (19.7-50.0)
[2025-02-28 05:48] LABS: ESTIMATED AVERAGE GLUCOSE 192.0 MG/DL (60-110)
[2025-02-28 07:47] VITALS: BP 129/71; TEMP 97.3; O2SAT 97
[2025-02-28] MEDS: INSULIN LISPRO (NovoLOG) PER UNIT SC SCH (08:44)
[2025-02-28] MEDS: lamoTRIgine 100 MG TAB PO SCH (09:13)
[2025-02-28] MEDS ORDERED: LAMO100T80 PO (10:00)
[2025-02-28 12:01] VITALS: BP 120/70; TEMP 98; O2SAT 97
[2025-02-28] MEDS ORDERED: INSULIN LISPRO (NovoLOG) PER UNIT SC SCH (21:00)
== END 2025-02-28 12:12 | disposition home or self-care (01) ==
LOC: M ED 18:13 → M ED INP 18:14 → M PCU 02-28 00:20
PROVIDERS: ADMIT Student in an Organized Health Care Education/Training Program; ATTEND Student in an Organized Health Care Education/Training Program
DX: G40.409 Other generalized epilepsy and epileptic syndromes, not intractable, without status epilepticus (principal); R74.02 Elevation of levels of lactic acid dehydrogenase [LDH]; B34.1 Enterovirus infection, unspecified; B34.8 Other viral infections of unspecified site; E11.9 Type 2 diabetes mellitus without complications; E78.5 Hyperlipidemia, unspecified; F79 Unspecified intellectual disabilities; Z79.84 Long term (current) use of oral hypoglycemic drugs; Z79.899 Other long term (current) drug therapy
CPT/HCPCS: 70450; 71046; 72125; 80048; 80076; 80175; 80177; 80307; 81001; 82140; 82330; 83605; 83735; 84100; 85025; 87040; 87486; 87581; 87633; 87798; 93041; 94760; 96361; 96374; 99285; G0378; J1815; J1953

== ENCOUNTER 2025-03-22 16:54 | Observation (INO) | payer MEDICARE, MEDICAID ==
[~2025-03-22] VITALS: Ht 180.3 cm; Wt 87.8 kg
[2025-03-22] MEDS: NS (Normal Saline) 0.9% 1,000 ML IV ONE (17:44)
[2025-03-22 18:18] LABS: CALCIUM LEVEL 8.8 MG/DL (8.5-10.1); CARBON DIOXIDE LEVEL 25 MMOL/L (20-31); CHLORIDE LEVEL 104 MMOL/L (98-107); CREATININE FOR GFR 0.94 MG/DL (0.70-1.30); GLOMERULAR FILTRATION RATE > 90.0 (>60); POTASSIUM SERUM 4.5 MMOL/L (3.5-5.1); SODIUM LEVEL 139 MMOL/L (136-145)
[2025-03-22 18:26] LABS: AMPHETAMINES LEVEL URINE NEGATIVE (NEGATIVE); BARBITURATES URINE NEGATIVE (NEGATIVE); BENZODIAZEPINES URINE NEGATIVE (NEGATIVE); CANNABINOIDS URINE NEGATIVE (NEGATIVE); COCAINE METABOLITE URINE NEGATIVE (NEGATIVE); METHADONE URINE NEGATIVE (NEGATIVE); OPIATES URINE NEGATIVE (NEGATIVE); PHENCYCLIDINE URINE NEGATIVE (NEGATIVE)
[2025-03-22] MEDS: levETIRAcetam INJection 1,500 MG in IV 1 EA IV ONE (19:13)
[2025-03-22] MEDS: lamoTRIgine 100 MG TAB PO ONE (19:45)
[2025-03-22] MEDS ORDERED: HOME MED LIST COMPLETE! XX SCH (20:00)
[2025-03-22 22:00] VITALS: BP 120/62; TEMP 99.9; O2SAT 96
[2025-03-22] MEDS: ROSUVASTATIN 10 MG TAB PO SCH (22:14)
[2025-03-23] VITALS (7 sets, daily range): BP systolic 113–132; BP diastolic 61–82; TEMP 97.5–102.1; O2SAT 96–100
[2025-03-23] MEDS ORDERED: ACETAMINOPHEN 325 MG TAB PO PRN (06:20)
[2025-03-23] MEDS ORDERED: GLUCAGON INJ 1 MG VIAL SC PRN (06:55)
[2025-03-23] MEDS ORDERED: DEXTROSE 50% 50 ML SYRINGE IV PRN (06:55)
[2025-03-23] MEDS ORDERED: GLUCOSE 4 GM CHEW PO PRN (06:55)
[2025-03-23] MEDS ORDERED: PILL CUTTER 1 EACH XX PRN (07:50)
[2025-03-23] MEDS: INSULIN LISPRO (NovoLOG) PER UNIT SC SCH ×2 (08:31→19:58)
[2025-03-23] MEDS: PANTOPRAZOLE 40MG VIAL IV SCH (12:13)
[2025-03-23] MEDS: NS (Normal Saline) 0.9% 1,000 ML IV ONE (12:14)
[2025-03-23] MEDS: lamoTRIgine 100 MG TAB PO SCH (20:27)
[2025-03-24] VITALS: BP 132/90; TEMP 98.5; O2SAT 99
[2025-03-24 04:00] VITALS: BP 124/73; TEMP 98.2; O2SAT 99
[2025-03-24 08:30] VITALS: BP 127/84; TEMP 98.7; O2SAT 98
[2025-03-24 08:52] LABS: CALCIUM LEVEL 9.0 MG/DL (8.5-10.1); CARBON DIOXIDE LEVEL 26 MMOL/L (20-31); CHLORIDE LEVEL 109 MMOL/L (98-107); CREATININE FOR GFR 0.81 MG/DL (0.70-1.30); GLOMERULAR FILTRATION RATE > 90.0 (>60); MAGNESIUM LEVEL 1.9 MG/DL (1.8-2.4); POTASSIUM SERUM 3.9 MMOL/L (3.5-5.1); SODIUM LEVEL 144 MMOL/L (136-145)
[2025-03-24] MEDS: lamoTRIgine 100 MG TAB PO SCH (09:03)
[2025-03-24] MEDS ORDERED: LAMO100T80 PO ×2 (11:22)
[2025-03-24] MEDS ORDERED: lamoTRIgine 100 MG TAB PO SCH (21:00)
[2025-03-26 03:02] LABS: LEVETIRACETAM (KEPPRA) 8.5 mcg/mL (6.0-46.0)
[2025-03-27 16:36] LABS: LAMOTRIGINE (LAMICTAL) 3.1 mcg/mL (2.5-15.0)
== END 2025-03-24 13:20 | disposition home or self-care (01) ==
LOC: M ED 16:54 → M ED INP 16:55 → M ED 18:54 → M MS4PR 22:00
PROVIDERS: ADMIT Student in an Organized Health Care Education/Training Program; ATTEND Student in an Organized Health Care Education/Training Program
DX: G40.909 Epilepsy, unspecified, not intractable, without status epilepticus (principal); Z91.148 Patient's other noncompliance with medication regimen for other reason; E11.9 Type 2 diabetes mellitus without complications; E78.5 Hyperlipidemia, unspecified; G31.89 Other specified degenerative diseases of nervous system; M79.641 Pain in right hand; Z79.84 Long term (current) use of oral hypoglycemic drugs; Z79.899 Other long term (current) drug therapy
CPT/HCPCS: 36415; 73130; 80048; 80175; 80177; 80307; 83735; 93005; 95819; 96374; 96375; 96376; 99285; G0378; J1815; J1953; J2060; J2470

== ENCOUNTER 2025-04-10 22:41 | Emergency (ER) | payer MEDICARE, MEDICAID ==
[~2025-04-10] VITALS: Ht 180.3 cm; Wt 77.3 kg
[2025-04-10] MEDS: levETIRAcetam INJection 1,500 MG in IV 1 EA IV ONE (23:07)
[2025-04-10 23:11] LABS: BASO # 0.1 10^3/uL (0.0-0.2); BASO % 0.5 % (0.0-1.0); EOS # 0.1 10^3/uL (0.0-0.5); EOS % 0.9 % (0.0-3.0); LYMPH # 4.2 10^3/uL (1.5-5.0); LYMPH % 37.3 % (24.0-44.0); MONO # 0.9 10^3/uL (0.0-0.8); MONO % 8.1 % (2.0-8.0); NEUTROPHILS # 5.9 10^3/uL (1.5-8.5); NEUTROPHILS % 52.6 % (36.0-66.0); PLATELET COUNT, AUTOMATED 508 10^3/uL (150-450)
[2025-04-10 23:23] LABS: ALT/SGPT 27 U/L (7.0-40); AST/SGOT 18 U/L (<34); CALCIUM LEVEL 9.2 MG/DL (8.5-10.1); CARBON DIOXIDE LEVEL 21 MMOL/L (20-31); CHLORIDE LEVEL 105 MMOL/L (98-107); CREATININE FOR GFR 0.88 MG/DL (0.70-1.30); GLOMERULAR FILTRATION RATE > 90.0 (>60); MAGNESIUM LEVEL 1.9 MG/DL (1.8-2.4); PHOSPHORUS LEVEL 3.7 MG/DL (2.5-4.9); POTASSIUM SERUM 4.7 MMOL/L (3.5-5.1); SODIUM LEVEL 142 MMOL/L (136-145)
[2025-04-10] MEDS: NS (Normal Saline) 0.9% 1,000 ML IV ONE (23:50)
[2025-04-11 02:54] VITALS: BP 120/76; TEMP 98.9; O2SAT 98
[2025-04-13 03:22] LABS: LEVETIRACETAM (KEPPRA) 3.4 mcg/mL (10.0-40.0)
[2025-04-14 18:58] LABS: LAMOTRIGINE (LAMICTAL) 7.2 mcg/mL (2.5-15.0)
== END 2025-04-11 02:48 | disposition home or self-care (01) ==
LOC: M ED 22:41
DX: G40.89 Other seizures (principal); S00.512A Abrasion of oral cavity, initial encounter; X58.XXXA Exposure to other specified factors, initial encounter; Y92.9 Unspecified place or not applicable; Y93.89 Activity, other specified; Y99.9 Unspecified external cause status; E11.9 Type 2 diabetes mellitus without complications; Z91.199 Patient's noncompliance with other medical treatment and regimen due to unspecified reason; Z79.84 Long term (current) use of oral hypoglycemic drugs; Z79.899 Other long term (current) drug therapy
CPT/HCPCS: 80048; 80076; 80175; 80177; 82140; 82330; 83605; 83735; 84100; 85025; 93041; 94760; 96365; 96375; 99284; J1953; J2060

== ENCOUNTER 2025-04-27 08:42 | Emergency (ER) | payer MEDICARE, MEDICAID ==
[~2025-04-27] VITALS: Ht 180.3 cm; Wt 84.4 kg
[2025-04-27 08:55] VITALS: TEMP 98.7
[2025-04-27 09:48] LABS: CALCIUM LEVEL 9.1 MG/DL (8.5-10.1); CARBON DIOXIDE LEVEL 19 MMOL/L (20-31); CHLORIDE LEVEL 104 MMOL/L (98-107); CREATININE FOR GFR 0.90 MG/DL (0.70-1.30); GLOMERULAR FILTRATION RATE > 90.0 (>60); POTASSIUM SERUM 4.5 MMOL/L (3.5-5.1); SODIUM LEVEL 139 MMOL/L (136-145)
[2025-04-27] MEDS: lamoTRIgine 100 MG TAB PO ONE (10:10)
[2025-04-27] MEDS: levETIRAcetam INJection 1,500 MG in IV 1 EA IV ONE (10:11)
[2025-04-27 11:20] VITALS: BP 103/70; O2SAT 97
[2025-04-30 21:03] LABS: LAMOTRIGINE (LAMICTAL) 7.6 mcg/mL (2.5-15.0)
[2025-05-02 00:37] LABS: LEVETIRACETAM (KEPPRA) 15.0 mcg/mL (10.0-40.0)
== END 2025-04-27 11:29 | disposition home or self-care (01) ==
LOC: EDBD 08:42 → M ED 08:42
DX: G40.89 Other seizures (principal); E11.9 Type 2 diabetes mellitus without complications; Z79.84 Long term (current) use of oral hypoglycemic drugs; Z79.899 Other long term (current) drug therapy
CPT/HCPCS: 80048; 80175; 80177; 96365; 99284; J1953

== ENCOUNTER 2025-05-10 07:28 | Emergency (ER) | payer MEDICARE, MEDICAID ==
[~2025-05-10] VITALS: Ht 180.3 cm; Wt 82.9 kg
[2025-05-10 07:36] VITALS: TEMP 100.1
[2025-05-10 08:03] LABS: BASO # 0.1 10^3/uL (0.0-0.2); BASO % 0.6 % (0.0-1.0); EOS # 0.1 10^3/uL (0.0-0.5); EOS % 1.5 % (0.0-3.0); LYMPH # 2.5 10^3/uL (1.5-5.0); LYMPH % 29.5 % (24.0-44.0); MONO # 0.6 10^3/uL (0.0-0.8); MONO % 7.0 % (2.0-8.0); NEUTROPHILS # 5.2 10^3/uL (1.5-8.5); NEUTROPHILS % 60.9 % (36.0-66.0); PLATELET COUNT, AUTOMATED 379 10^3/uL (150-450)
[2025-05-10 08:38] LABS: ALT/SGPT 28 U/L (7.0-40); AST/SGOT 19 U/L (<34); CALCIUM LEVEL 9.5 MG/DL (8.5-10.1); CARBON DIOXIDE LEVEL 23 MMOL/L (20-31); CHLORIDE LEVEL 106 MMOL/L (98-107); CREATININE FOR GFR 0.76 MG/DL (0.70-1.30); GLOMERULAR FILTRATION RATE > 90.0 (>60); MAGNESIUM LEVEL 1.8 MG/DL (1.8-2.4); POTASSIUM SERUM 4.3 MMOL/L (3.5-5.1); SODIUM LEVEL 143 MMOL/L (136-145)
[2025-05-10] MEDS: levETIRAcetam INJection 1,500 MG in IV 1 EA IV ONE (08:46)
[2025-05-10] MEDS: lamoTRIgine 100 MG TAB PO ONE (08:46)
[2025-05-10] MEDS ORDERED: EEG XX (09:06)
[2025-05-10] MEDS ORDERED: METF-1157 PO (10:53)
[2025-05-10] MEDS ORDERED: LAMO100T80 PO (10:53)
[2025-05-10] MEDS ORDERED: HOME MED LIST COMPLETE! XX SCH (10:55)
[2025-05-10 13:45] VITALS: BP 116/83; O2SAT 97
[2025-05-12 10:53] LABS: LEVETIRACETAM (KEPPRA) 17.7 mcg/mL (10.0-40.0)
[2025-05-12 17:32] LABS: LAMOTRIGINE (LAMICTAL) 6.2 mcg/mL (2.5-15.0)
== END 2025-05-10 14:04 | disposition home or self-care (01) ==
LOC: EDBD 07:28 → M ED 07:28
DX: G40.89 Other seizures (principal)
CPT/HCPCS: 80048; 80076; 80175; 80177; 82330; 83735; 85025; 93041; 94760; 96365; 99285; J1953